=== PATIENT | female | born 1965 | race Two or more races ===

== ENCOUNTER 2020-04-06 07:15 | Outpatient (REF) | payer OTHER, SELFPAY ==
[2020-04-06 07:39] LABS: MANUAL DIFF FLAG NO
[2020-04-06 07:41] LABS: Glucose Urine UA NEG (NEG); Leukocyte Esterase Urine NEG (NEG); Nitrite Urine NEG (NEG); PH 5.5 (5.0-8.0); Specific Gravity - Urine 1.025 (1.005-1.025); Urine Blood NEG (NEG); Urine Ketones NEG (NEG); Urine Protein NEG (NEG-TRACE)
[2020-04-06 07:43] LABS: Appearance Urine CLEAR; Color Urine YELLOW
[2020-04-06 07:52] LABS: Basophils Absolute Auto 0.1 X10*3/uL (0.0-0.2); Basophils Percent Auto 0.7 % (0-2); Eosinophils Absolute Auto 0.4 X10*3/uL (0.0-0.4); Eosinophils Percent Auto 3.8 % (0-4); Hemoglobin 12.2 g/dl (12.0-16.0); Imm Gran Abs Auto 0.04 X10*3/uL (0.00-0.03); Imm Gran Pct Auto 0.4 % (0.0-0.4); Lymphocytes Absolute Auto 2.5 X10*3/uL (1.2-4.9); Mean Corpuscular HGB Conc 30.5 g/dl (31.0-35.0); Mean Corpuscular Hemoglobin 25.7 pg (27.0-33.0); Mean Corpuscular Volume 84.4 fL (80-98); Mean Platelet Volume 8.9 fL (9.4-12.3); Monocytes Percent Auto 10.4 % (2-11); Neutrophils Absolute Auto 5.9 X10*3/uL (2.0-8.3); Neutrophils Percent Auto 59.7 % (45-73); Platelet Count 397 X10*3/uL (160-400); Red Blood Count 4.74 X10*6/uL (4.20-5.50); Red Cell Distribution Width 14.3 % (11.0-16.0)
[2020-04-06 08:05] LABS: Creatinine Urine 140.94 mg/dL; Microalbum/Creatinine Ratio Ur 12.7 ug/mg cr
[2020-04-06 08:07] LABS: Alanine Aminotransferase 29 U/L (0-31); Albumin Level 3.7 g/dL (3.5-5.0); Alkaline Phosphatase 70 U/L (39-117); Anion Gap 12 (12-20); Aspartate Amino Transferase 21 U/L (5-31); Bilirubin Total 0.5 mg/dL (0.0-1.0); Blood Urea Nitrogen 9 mg/dL (9-16); Calcium 9.1 mg/dL (8.4-10.2); Carbon Dioxide 30 mmol/L (22-29); Chloride 101 mmol/L (96-108); Cholesterol 169 mg/dL; Estimated Glomerular Filt Rate > 60; Glucose Fasting 149 mg/dL (60-99); HDL Cholesterol 34 mg/dL; LDL Cholesterol Calculated 113 mg/dl; Potassium 4.1 mmol/l (3.3-5.1); Sodium 139 mmol/L (135-145); Total Protein 7.9 g/dL (6.5-8.0); Triglycerides 110 mg/dL
[2020-04-06 08:10] LABS: Bacteria Urine 1+ /LPF; RBC Urine 0 /HPF (0); Squamous Epithelial Cell Urine 2+ /LPF; WBC Urine 0-2 /HPF (0-4)
[2020-04-06 08:29] LABS: Free T4 (Free Thyroxine) 1.31 ng/dL (0.71-1.85); Thyroid Stimulating Hormone 1.49 uIU/mL (0.32-4.0)
== END 2020-04-06 07:16 | disposition home or self-care (01) ==
LOC: HO.LAB 07:15
PROVIDERS: Visit Provider Internal Medicine
DX: I10 Essential (primary) hypertension (principal); E03.9 Hypothyroidism, unspecified; E66.01 Morbid (severe) obesity due to excess calories; J30.2 Other seasonal allergic rhinitis; E55.9 Vitamin D deficiency, unspecified
CPT/HCPCS: 36415; 80053; 80061; 81001; 82043; 82306; 84439; 84443; 85025

== ENCOUNTER 2020-08-25 07:07 | Outpatient (REF) | payer OTHER, SELFPAY ==
[2020-08-25 07:37] LABS: MANUAL DIFF FLAG NO
[2020-08-25 07:56] LABS: Basophils Absolute Auto 0.1 X10*3/uL (0.0-0.2); Basophils Percent Auto 0.9 % (0-2); Eosinophils Absolute Auto 0.4 X10*3/uL (0.0-0.4); Eosinophils Percent Auto 4.6 % (0-4); Hematocrit 40.9 % (37-47); Imm Gran Abs Auto 0.03 X10*3/uL (0.00-0.03); Imm Gran Pct Auto 0.4 % (0.0-0.4); Lymphocytes Absolute Auto 2.6 X10*3/uL (1.2-4.9); Lymphocytes Percent Auto 32.2 % (20-40); Mean Corpuscular HGB Conc 31.8 g/dl (31.0-35.0); Mean Corpuscular Hemoglobin 26.4 pg (27.0-33.0); Monocytes Absolute Auto 0.9 X10*3/uL (0.1-1.2); Monocytes Percent Auto 10.7 % (2-11); Neutrophils Absolute Auto 4.1 X10*3/uL (2.0-8.3); Neutrophils Percent Auto 51.2 % (45-73); Platelet Count 350 X10*3/uL (160-400); Red Blood Count 4.93 X10*6/uL (4.20-5.50); Red Cell Distribution Width 13.8 % (11.0-16.0)
[2020-08-25 08:01] LABS: Estimated Average Glucose 275 mg/dL; Hemoglobin A1c % 11.2 %
[2020-08-25 08:03] LABS: Alanine Aminotransferase 69 U/L (0-31); Albumin Level 3.8 g/dL (3.5-5.0); Alkaline Phosphatase 84 U/L (39-117); Anion Gap 14 (12-20); Aspartate Amino Transferase 46 U/L (5-31); Bilirubin Total 0.7 mg/dL (0.0-1.0); Blood Urea Nitrogen 11 mg/dL (9-16); Calcium 9.5 mg/dL (8.4-10.2); Carbon Dioxide 28 mmol/L (22-29); Chloride 98 mmol/L (96-108); Cholesterol 202 mg/dL; Estimated Glomerular Filt Rate > 60; Glucose Fasting 439 mg/dL (60-99); HDL Cholesterol 30 mg/dL; LDL Cholesterol Calculated 132 mg/dl; Potassium 4.3 mmol/L (3.3-5.1); Sodium 136 mmol/L (135-145); Total Protein 8.1 g/dL (6.5-8.0); Triglycerides 204 mg/dL
[2020-08-25 08:20] LABS: Free T4 (Free Thyroxine) 1.55 ng/dL (0.71-1.85); Thyroid Stimulating Hormone 2.18 uIU/mL (0.32-4.0); Vitamin D 25-OH Total 22.8 ng/mL (>30)
[2020-08-25 08:37] LABS: Glucose Urine UA 500 MG/DL (NEG); Leukocyte Esterase Urine NEG (NEG); Nitrite Urine NEG (NEG); PH 5.5 (5.0-8.0); Specific Gravity - Urine 1.025 (1.005-1.025); Urine Blood 1+ (NEG); Urine Ketones NEG (NEG); Urine Protein NEG (NEG-TRACE)
[2020-08-25 08:42] LABS: Appearance Urine HAZY; Color Urine YELLOW
[2020-08-25 08:57] LABS: Squamous Epithelial Cell Urine 2+ /LPF; WBC Urine 0 /HPF (0-4)
[2020-08-25 09:05] LABS: Creatinine Urine 128.77 mg/dL; Microalbum/Creatinine Ratio Ur 25.6 ug/mg cr
== END 2020-08-25 07:08 | disposition home or self-care (01) ==
LOC: HO.LAB 07:07
PROVIDERS: PCP Internal Medicine; Visit Provider Internal Medicine
DX: I10 Essential (primary) hypertension (principal); J98.4 Other disorders of lung; E11.9 Type 2 diabetes mellitus without complications; E78.5 Hyperlipidemia, unspecified; E03.9 Hypothyroidism, unspecified; E66.01 Morbid (severe) obesity due to excess calories; Z68.43 Body mass index [BMI] 50.0-59.9, adult; E55.9 Vitamin D deficiency, unspecified
CPT/HCPCS: 36415; 80053; 80061; 81001; 81003; 82043; 82306; 83036; 84439; 84443; 85025

== ENCOUNTER 2020-10-15 08:42 | Outpatient (REF) | payer OTHER, SELFPAY ==
--- NOTE | ~2020-10-15 | MM_ITS ---
EXAMINATION: MM SCREENING DIGITAL BREAST TOMOSYNTHESIS, BILATERAL CLINICAL INFORMATION: Screening. Asymptomatic. The lifetime risk of breast cancer based on the Tyrer-Cuzick Model is 17%. COMPARISON: Mammography: 07/11/2019, 11/09/2017, 09/22/2016 TECHNIQUE: Digital breast tomosynthesis is performed in both the craniocaudal and mediolateral oblique views along with computer-aided detection (CAD). Synthesized 2D images are generated from the tomosynthesis. Additional left CC view is provided. FINDINGS: The breasts are almost entirely fatty (ACR BI-RADS breast composition Category a). Background stromal and fibroglandular densities are stable. There is no interval mass or architectural abnormality. Regional punctate benign round calcifications are again seen posterior medial left breast in area of superficial keloids. The axilla are unremarkable. There are no significant changes from prior studies. MM/MM tomosynthesis screening BI IMPRESSION: No mammographic evidence of malignancy. ASSESSMENT: BI-RADS 2: Benign RECOMMENDATION: Routine annual mammography screening. This patient's information was entered into a reminder system with a target due date for their next mammogram.
== END 2020-10-15 08:43 | disposition home or self-care (01) ==
LOC: HO.MAMMO 08:42
PROVIDERS: PCP Internal Medicine; Visit Provider Internal Medicine
DX: Z12.31 Encounter for screening mammogram for malignant neoplasm of breast (principal)
CPT/HCPCS: 77063; 77067

== ENCOUNTER → 2020-10-30 09:41 | Outpatient (BNVA) | payer OTHER, SELFPAY | PROVIDERS: PCP Internal Medicine; Visit Provider Dietitian, Registered | DX: E11.65 Type 2 diabetes mellitus with hyperglycemia (principal) | CPT/HCPCS: 97802 ==

== ENCOUNTER → 2020-12-23 09:47 | Outpatient (BNVA) | payer OTHER, SELFPAY | PROVIDERS: PCP Internal Medicine; Visit Provider Dietitian, Registered | DX: E11.65 Type 2 diabetes mellitus with hyperglycemia (principal) | CPT/HCPCS: 97803 ==

== ENCOUNTER 2021-04-03 09:16 | Outpatient (REF) | payer OTHER, SELFPAY ==
[2021-04-03 09:29] LABS: MANUAL DIFF FLAG NO
[2021-04-03 10:12] LABS: Basophils Percent Auto 0.4 % (0-2); Eosinophils Absolute Auto 0.4 X10*3/uL (0.0-0.4); Eosinophils Percent Auto 5.5 % (0-4); Hematocrit 41.7 % (37.0-47.0); Hemoglobin 12.4 g/dl (12.0-16.0); Imm Gran Abs Auto 0.02 X10*3/uL (0.00-0.03); Imm Gran Pct Auto 0.3 % (0.0-0.4); Lymphocytes Absolute Auto 2.5 X10*3/uL (1.2-4.9); Lymphocytes Percent Auto 32.4 % (20-40); Mean Corpuscular HGB Conc 29.7 g/dl (31.0-35.0); Mean Corpuscular Hemoglobin 25.2 pg (27.0-33.0); Mean Corpuscular Volume 84.8 fL (80.0-98.0); Mean Platelet Volume 9.6 fL (9.4-12.3); Neutrophils Absolute Auto 3.8 x10*3/uL (2.0-8.3); Neutrophils Percent Auto 48.4 % (45-73); Platelet Count 384 X10*3/uL (160-400); Red Blood Count 4.92 X10*6/uL (4.20-5.50); White Blood Count 7.8 X10*3/uL (4.8-10.8)
[2021-04-03 10:44] LABS: Estimated Average Glucose 137 mg/dL; Hemoglobin A1c % 6.4 %
[2021-04-03 11:04] LABS: Free T4 (Free Thyroxine) 1.93 ng/dL (0.71-1.85); Thyroid Stimulating Hormone 1.83 uIU/mL (0.32-4.0)
[2021-04-03 11:08] LABS: Alanine Aminotransferase 98 U/L (0-31); Albumin Level 3.5 g/dL (3.5-5.0); Alkaline Phosphatase 59 U/L (39-117); Anion Gap 14 (12-20); Aspartate Amino Transferase 91 U/L (5-31); Bilirubin Total 0.4 mg/dL (0.0-1.0); Blood Urea Nitrogen 9 mg/dL (9-16); Calcium 9.5 mg/dL (8.4-10.2); Carbon Dioxide 28 mmol/L (22-29); Chloride 103 mmol/L (96-108); Cholesterol 168 mg/dL; Estimated Glomerular Filt Rate > 60; Glucose Fasting 131 mg/dL (60-99); HDL Cholesterol 21 mg/dL; LDL Cholesterol Calculated 110 mg/dl; Sodium 141 mmol/L (135-145); Total Protein 7.7 g/dL (6.5-8.0); Triglycerides 186 mg/dL
[2021-04-03 11:37] LABS: Appearance Urine HAZY; Color Urine YELLOW; Glucose Urine UA NEG (NEG); Leukocyte Esterase Urine NEG (NEG); Nitrite Urine NEG (NEG); PH 5.5 (5.0-8.0); Specific Gravity - Urine >= 1.030 (1.005-1.025); Urine Blood NEG (NEG); Urine Ketones NEG (NEG); Urine Protein NEG (NEG-TRACE)
[2021-04-03 11:58] LABS: Creatinine Urine 245.18 mg/dL; Microalbum/Creatinine Ratio Ur 8.5 ug/mg cr
== END 2021-04-03 09:17 | disposition home or self-care (01) ==
LOC: HO.LAB 09:16
PROVIDERS: PCP Internal Medicine; Visit Provider Internal Medicine
DX: E11.65 Type 2 diabetes mellitus with hyperglycemia (principal); I10 Essential (primary) hypertension; E03.9 Hypothyroidism, unspecified; E78.00 Pure hypercholesterolemia, unspecified; E78.5 Hyperlipidemia, unspecified; J30.2 Other seasonal allergic rhinitis; E66.01 Morbid (severe) obesity due to excess calories; Z68.43 Body mass index [BMI] 50.0-59.9, adult
CPT/HCPCS: 36415; 80053; 80061; 81003; 82043; 83036; 84439; 84443; 85025

== ENCOUNTER 2021-05-25 07:45 | Outpatient (REF) | payer OTHER, SELFPAY ==
--- NOTE | ~2021-05-25 | US_ITS ---
EXAMINATION: US ABDOMEN COMPLETE CLINICAL INFORMATION: Elevated LFTs. COMPARISON: CT abdomen and pelvis without contrast 03/31/2017 ultrasound abdomen 06/10/2011. TECHNIQUE: Real-time imaging of the abdominal viscera. Technically suboptimal study secondary to body habitus. FINDINGS: Suboptimal imaging due to body habitus. PANCREAS: The head and body of pancreas is homogeneous in echotexture without enlargement. The tail is obscured by overlying gas. ABDOMINAL AORTA: The proximal, mid, and distal segments are normal in caliber. INFERIOR VENA CAVA: Visualized portions are normal. LIVER: The liver is enlarged with increased echogenicity. No focal lesion or mass seen. There is no intrahepatic biliary duct dilatation seen. Right hepatic lobe measures 21.1 cm and the left hepatic lobe measures 16.3 cm. . GALLBLADDER: There is a small echogenic polyp measuring 0.6 x 0.4 x 0.4 cm. Wall calcification is considered less likely. The gallbladder is physiologically distended without evidence of stones, sludge, wall thickening or pericholecystic fluid. COMMON BILE DUCT: Normal in caliber measuring 0.3 cm in diameter. RIGHT KIDNEY: Normal. No hydronephrosis. No renal calculi or focal parenchymal lesions. The kidney measures 14.2 cm in maximum dimension. LEFT KIDNEY: Normal. No hydronephrosis. No renal calculi or focal parenchymal lesions. The kidney measures 13.6 cm in maximum dimension. SPLEEN: Normal. The spleen measures 11.0 cm in maximum dimension. FREE FLUID: None. US/US abdomen complete IMPRESSION: Hepatic enlargement with hepatic steatosis. No focal lesion seen. Mobile echogenic gallbladder polyp, less likely calcification. The rest of the abdominal ultrasound is unremarkable.
== END 2021-05-25 07:46 | disposition home or self-care (01) ==
LOC: HO.US 07:45
PROVIDERS: PCP Internal Medicine; Visit Provider Internal Medicine
DX: R79.89 Other specified abnormal findings of blood chemistry (principal)
CPT/HCPCS: 76700

== ENCOUNTER 2021-09-28 07:11 | Outpatient (REF) | payer OTHER, SELFPAY ==
[2021-09-28 07:28] LABS: MANUAL DIFF FLAG NO
[2021-09-28 08:26] LABS: Basophils Absolute Auto 0.1 X10*3/uL (0.0-0.2); Basophils Percent Auto 0.7 % (0-2); Eosinophils Absolute Auto 0.7 X10*3/uL (0.0-0.4); Eosinophils Percent Auto 6.6 % (0-4); Hematocrit 40.9 % (37.0-47.0); Hemoglobin 12.5 g/dl (12.0-16.0); Imm Gran Abs Auto 0.03 X10*3/uL (0.00-0.03); Imm Gran Pct Auto 0.3 % (0.0-0.4); Lymphocytes Absolute Auto 2.8 X10*3/uL (1.2-4.9); Lymphocytes Percent Auto 28.9 % (20-40); Mean Corpuscular HGB Conc 30.6 g/dl (31.0-35.0); Mean Platelet Volume 9.4 fL (9.4-12.3); Monocytes Percent Auto 9.8 % (2-11); Neutrophils Absolute Auto 5.3 x10*3/uL (2.0-8.3); Neutrophils Percent Auto 53.7 % (45-73); Platelet Count 393 X10*3/uL (160-400); Red Blood Count 4.81 X10*6/uL (4.20-5.50); Red Cell Distribution Width 13.9 % (11.0-16.0); White Blood Count 9.8 X10*3/uL (4.8-10.8)
[2021-09-28 08:30] LABS: Alanine Aminotransferase 86 U/L (0-31); Albumin Level 3.7 g/dL (3.5-5.0); Alkaline Phosphatase 62 U/L (39-117); Anion Gap 14 (12-20); Aspartate Amino Transferase 72 U/L (5-31); Bilirubin Total 0.5 mg/dL (0.0-1.0); Blood Urea Nitrogen 13 mg/dL (9-16); Calcium 9.7 mg/dL (8.4-10.2); Carbon Dioxide 29 mmol/L (22-29); Chloride 100 mmol/L (96-108); Cholesterol 208 mg/dL; Estimated Glomerular Filt Rate > 60; Glucose Fasting 153 mg/dL (60-99); HDL Cholesterol 29 mg/dL; LDL Cholesterol Calculated 144 mg/dl; Potassium 4.6 mmol/L (3.3-5.1); Sodium 138 mmol/L (135-145); Total Protein 8.3 g/dL (6.5-8.0); Triglycerides 175 mg/dL
[2021-09-28 08:32] LABS: Appearance Urine CLEAR; Color Urine YELLOW; Glucose Urine UA NEG (NEG); Leukocyte Esterase Urine NEG (NEG); Nitrite Urine NEG (NEG); PH 5.5 (5.0-8.0); Specific Gravity - Urine >= 1.030 (1.005-1.025); UACC Culture Trigger NO; Urine Blood 2+ (NEG); Urine Ketones NEG (NEG); Urine Protein NEG (NEG-TRACE)
[2021-09-28 08:58] LABS: Free T4 (Free Thyroxine) 1.48 ng/dL (0.71-1.85); Thyroid Stimulating Hormone 3.01 uIU/mL (0.32-4.0); Vitamin D 25-OH Total 46.6 ng/mL (>30)
[2021-09-28 08:58] LABS: Creatinine Urine 224.73 mg/dL
[2021-09-28 08:59] LABS: Mucus Urine TRACE /LPF; Squamous Epithelial Cell Urine 4+ /LPF; WBC Urine 0 /HPF (0-4)
== END 2021-09-28 07:12 | disposition home or self-care (01) ==
LOC: HO.LAB 07:11
PROVIDERS: PCP Internal Medicine; Visit Provider Internal Medicine
DX: E03.9 Hypothyroidism, unspecified (principal); I10 Essential (primary) hypertension; E55.9 Vitamin D deficiency, unspecified; E11.9 Type 2 diabetes mellitus without complications; E78.00 Pure hypercholesterolemia, unspecified
CPT/HCPCS: 36415; 80053; 80061; 81001; 82043; 82306; 84439; 84443; 85025

== ENCOUNTER 2022-01-21 07:06 | Outpatient (REF) | payer OTHER, SELFPAY ==
[2022-01-21 07:56] LABS: Estimated Average Glucose 131 mg/dL; Hemoglobin A1c % 6.2 %
[2022-01-21 08:05] LABS: Alanine Aminotransferase 60 U/L (0-31); Albumin Level 3.8 g/dL (3.5-5.0); Alkaline Phosphatase 63 U/L (39-117); Anion Gap 16 (12-20); Aspartate Amino Transferase 59 U/L (5-31); Bilirubin Total 0.3 mg/dL (0.0-1.0); Blood Urea Nitrogen 12 mg/dL (9-16); Calcium 9.4 mg/dL (8.4-10.2); Carbon Dioxide 28 mmol/L (22-29); Chloride 100 mmol/L (96-108); Cholesterol 216 mg/dL; Estimated Glomerular Filt Rate > 60; Glucose Fasting 148 mg/dL (60-99); HDL Cholesterol 31 mg/dL; LDL Cholesterol Calculated 152 mg/dl; Potassium 4.3 mmol/L (3.3-5.1); Sodium 140 mmol/L (135-145); Total Protein 7.9 g/dL (6.5-8.0); Triglycerides 169 mg/dL
[2022-01-21 08:10] LABS: Appearance Urine Clear; Color Urine Yellow; Glucose Urine UA Negative (Negative); Leukocyte Esterase Urine Negative (Negative); Nitrite Urine Negative (Negative); Specific Gravity - Urine 1.025 (1.005-1.025); Urine Blood Negative (Negative); Urine Ketones Negative (Negative); Urine Protein Negative (Neg-Trace)
[2022-01-21 08:28] LABS: Free T4 (Free Thyroxine) 1.48 ng/dL (0.71-1.85)
== END 2022-01-21 07:07 | disposition home or self-care (01) ==
LOC: HO.LAB 07:06
PROVIDERS: PCP Internal Medicine; Visit Provider Internal Medicine
DX: I10 Essential (primary) hypertension (principal); E03.9 Hypothyroidism, unspecified; E11.9 Type 2 diabetes mellitus without complications; E78.00 Pure hypercholesterolemia, unspecified
CPT/HCPCS: 36415; 80053; 80061; 81003; 83036; 84439; 84443

== ENCOUNTER 2022-07-26 07:09 | Outpatient (REF) | payer OTHER, SELFPAY ==
[2022-07-26 07:18] LABS: MANUAL DIFF FLAG NO
[2022-07-26 07:55] LABS: Estimated Average Glucose 137 mg/dL; Hemoglobin A1c % 6.4 %
[2022-07-26 07:56] LABS: Basophils Absolute Auto 0.1 X10*3/uL (0.0-0.2); Basophils Percent Auto 0.6 % (0-2); Eosinophils Absolute Auto 0.7 X10*3/uL (0.0-0.4); Eosinophils Percent Auto 5.6 % (0-4); Hematocrit 40.6 % (37.0-47.0); Hemoglobin 12.4 g/dl (12.0-16.0); Imm Gran Abs Auto 0.04 X10*3/uL (0.00-0.03); Imm Gran Pct Auto 0.3 % (0.0-0.4); Lymphocytes Percent Auto 25.4 % (20-40); Mean Corpuscular HGB Conc 30.5 g/dl (31.0-35.0); Mean Corpuscular Hemoglobin 25.6 pg (27.0-33.0); Mean Corpuscular Volume 83.7 fL (80.0-98.0); Mean Platelet Volume 9.8 fL (9.4-12.3); Monocytes Absolute Auto 0.9 X10*3/uL (0.1-1.2); Monocytes Percent Auto 7.7 % (2-11); Neutrophils Absolute Auto 7.1 x10*3/uL (2.0-8.3); Neutrophils Percent Auto 60.4 % (45-73); Platelet Count 455 X10*3/uL (160-400); Red Blood Count 4.85 X10*6/uL (4.20-5.50); Red Cell Distribution Width 14.3 % (11.0-16.0); White Blood Count 11.7 X10*3/uL (4.8-10.8)
[2022-07-26 08:20] LABS: Alanine Aminotransferase 55 U/L (0-31); Albumin Level 3.8 g/dL (3.5-5.0); Alkaline Phosphatase 73 U/L (39-117); Anion Gap 15 (12-20); Aspartate Amino Transferase 70 U/L (5-31); Bilirubin Total 0.6 mg/dL (0.0-1.0); Blood Urea Nitrogen 12 mg/dL (9-16); Calcium 9.6 mg/dL (8.4-10.2); Carbon Dioxide 29 mmol/L (22-29); Chloride 100 mmol/L (96-108); Cholesterol 162 mg/dL; Estimated Glomerular Filt Rate > 60; Glucose Fasting 143 mg/dL (60-99); HDL Cholesterol 31 mg/dL; LDL Cholesterol Calculated 102 mg/dl; Potassium 4.3 mmol/L (3.3-5.1); Sodium 140 mmol/L (135-145); Total Protein 7.8 g/dL (6.5-8.0); Triglycerides 147 mg/dL
[2022-07-26 08:33] LABS: Appearance Urine Clear; Color Urine Yellow; Glucose Urine UA Negative (Negative); Leukocyte Esterase Urine Negative (Negative); Nitrite Urine Negative (Negative); PH 5.5 (5.0-9.0); Specific Gravity - Urine 1.025 (1.005-1.025); Urine Blood Negative (Negative); Urine Ketones Negative (Negative); Urine Protein Trace mg/dL (Neg-Trace)
[2022-07-26 08:39] LABS: Free T4 (Free Thyroxine) 1.16 ng/dL (0.71-1.85); Vitamin D 25-OH Total 78.7 ng/mL (>30)
[2022-07-26 09:15] LABS: Creatinine Urine 205.59 mg/dL
== END 2022-07-26 07:10 | disposition home or self-care (01) ==
LOC: HO.LAB 07:09
PROVIDERS: PCP Internal Medicine; Visit Provider Internal Medicine
DX: E03.9 Hypothyroidism, unspecified (principal); R30.0 Dysuria; E11.9 Type 2 diabetes mellitus without complications; E55.9 Vitamin D deficiency, unspecified; I10 Essential (primary) hypertension; E78.00 Pure hypercholesterolemia, unspecified
CPT/HCPCS: 36415; 80053; 80061; 81003; 82043; 82306; 83036; 84439; 84443; 85025

== ENCOUNTER 2022-09-15 07:40 | Outpatient (REF) | payer OTHER, SELFPAY ==
--- NOTE | ~2022-09-15 | CT_ITS ---
EXAMINATION: CT head/brain wo IV con CLINICAL INFORMATION: Reason for Exam R51.9 - Headache, unspecified COMPARISON: None. TECHNIQUE: Contiguous axial imaging was performed from the skull base to vertex without intravenous contrast. Sagittal and coronal reformatted images were obtained. This CT examination was performed using dose optimization techniques as appropriate, variously including the following: * Automated exposure control * Adjustment of mA and/or kV according to patient size (this includes techniques or standardized protocols for targeted exams where dose is matched to indication/reason for exam; i.e. extremities or head) Use of iterative reconstruction technique DLP: 779 mGy-cm FINDINGS: No acute osseous or soft tissue abnormality. The mastoid air cells and visualized portions of the paranasal sinuses are well aerated. There is no evidence of acute intracranial hemorrhage or territorial infarction. No abnormal mass effect or midline shift is seen. Voss to white matter differentiation is well preserved. No extra-axial fluid collections are identified. No hydrocephalus. No significant volume loss. There is no abnormal attenuation within the brain parenchyma. CT/CT head/brain wo IV con IMPRESSION: No acute intracranial abnormality including hemorrhage, mass effect, hydrocephalus, or acute territorial edematous infarction.
== END 2022-09-15 07:41 | disposition home or self-care (01) ==
LOC: HO.CT 07:40
PROVIDERS: PCP Internal Medicine; Visit Provider Internal Medicine
DX: R51.9 Headache, unspecified (principal)
CPT/HCPCS: 70450

== ENCOUNTER 2022-10-14 16:05 | Outpatient (REF) | payer OTHER, SELFPAY ==
--- NOTE | ~2022-10-14 | MM_ITS ---
EXAMINATION: MM SCREENING DIGITAL BREAST TOMOSYNTHESIS, BILATERAL CLINICAL INFORMATION: Screening. Asymptomatic. The lifetime risk of breast cancer based on the Tyrer-Cuzick Model is 17%. COMPARISON: Mammography: 10/15/2020, 07/11/2019, 11/09/2017 TECHNIQUE: Digital breast tomosynthesis is performed in both the craniocaudal and mediolateral oblique views along with computer-aided detection (CAD). Synthesized 2D images are generated from the tomosynthesis. Additional left MLO view is provided. FINDINGS: The breasts are almost entirely fatty (ACR BI-RADS breast composition Category a). Background stromal and fibroglandular densities are similar to prior studies. No architectural abnormality or developing density. There are no significant masses, abnormal calcifications, or other abnormalities. There is chronic dermal lesion overlying the posterior medial left breast with scattered benign dermal calcifications. The axilla are unremarkable. No significant changes. MM/MM tomosynthesis screening BI IMPRESSION: No mammographic evidence of malignancy. ASSESSMENT: BI-RADS 2: Benign RECOMMENDATION: Routine annual mammography screening. This patient's information was entered into a reminder system with a target due date for their next mammogram.
== END 2022-10-14 16:06 | disposition home or self-care (01) ==
LOC: HO.MAMMO 16:05
PROVIDERS: PCP Internal Medicine; Visit Provider Internal Medicine
DX: Z12.31 Encounter for screening mammogram for malignant neoplasm of breast (principal)
CPT/HCPCS: 77063; 77067

== ENCOUNTER 2023-03-29 07:11 | Outpatient (REF) | payer OTHER, SELFPAY ==
[2023-03-29 07:32] LABS: MANUAL DIFF FLAG NO
[2023-03-29 08:49] LABS: Basophils Absolute Auto 0.1 X10*3/uL (0.0-0.2); Basophils Percent Auto 0.9 % (0-2); Eosinophils Absolute Auto 0.5 X10*3/uL (0.0-0.4); Eosinophils Percent Auto 4.9 % (0-4); Hematocrit 39.7 % (37.0-47.0); Hemoglobin 11.9 g/dl (12.0-16.0); Imm Gran Abs Auto 0.03 X10*3/uL (0.00-0.03); Imm Gran Pct Auto 0.3 % (0.0-0.4); Lymphocytes Absolute Auto 2.3 X10*3/uL (1.2-4.9); Lymphocytes Percent Auto 23.5 % (20-40); Mean Corpuscular Hemoglobin 25.4 pg (27.0-33.0); Mean Corpuscular Volume 84.6 fL (80.0-98.0); Mean Platelet Volume 10.1 fL (9.4-12.3); Monocytes Absolute Auto 0.8 X10*3/uL (0.1-1.2); Monocytes Percent Auto 7.6 % (2-11); Neutrophils Absolute Auto 6.2 x10*3/uL (2.0-8.3); Neutrophils Percent Auto 62.8 % (45-73); Platelet Count 392 X10*3/uL (160-400); Red Blood Count 4.69 X10*6/uL (4.20-5.50); Red Cell Distribution Width 14.1 % (11.0-16.0); White Blood Count 9.8 X10*3/uL (4.8-10.8)
[2023-03-29 08:58] LABS: Appearance Urine Cloudy; Color Urine Yellow; Glucose Urine UA 100 mg/dL (Negative); Leukocyte Esterase Urine Negative (Negative); Nitrite Urine Negative (Negative); PH 5.5 (5.0-9.0); Specific Gravity - Urine 1.025 (1.005-1.025); UMIC TRIGGER UACC YES; Urine Blood Negative (Negative); Urine Ketones Trace mg/dL (Negative); Urine Protein 30 (1+) mg/dL (Neg-Trace)
[2023-03-29 09:14] LABS: Estimated Average Glucose 232 mg/dL; Hemoglobin A1c % 9.7 % (<6.0)
[2023-03-29 09:33] LABS: Alanine Aminotransferase 38 U/L (0-31); Albumin Level 3.7 g/dL (3.5-5.0); Alkaline Phosphatase 60 U/L (39-117); Anion Gap 14 (12-20); Aspartate Amino Transferase 35 U/L (5-31); Bilirubin Total 0.4 mg/dL (0.0-1.0); Blood Urea Nitrogen 9 mg/dL (9-16); Calcium 9.8 mg/dL (8.4-10.2); Carbon Dioxide 28 mmol/L (22-29); Chloride 101 mmol/L (96-108); Cholesterol 146 mg/dL (<200); Estimated Glomerular Filt Rate > 60; Glucose Fasting 266 mg/dL (60-99); HDL Cholesterol 31 mg/dL (>40); LDL Cholesterol Calculated 87 mg/dL (<100); Sodium 139 mmol/L (135-145); Total Protein 8.2 g/dL (6.5-8.0); Triglycerides 141 mg/dL (<150)
[2023-03-29 09:33] LABS: Bacteria Urine 1+ (None Seen); Hyaline Casts Urine 0-2 /LPF (0-2); RBC Urine 0-2 /HPF (0-2); Squamous Epithelial Cell Urine >20 /HPF (0-2); WBC Urine 0-5 /HPF (0-5)
[2023-03-29 09:40] LABS: Vitamin D 25-OH Total 57.2 ng/mL (>30)
[2023-04-02 01:58] LABS: Iodine, Serum/Plasma 70 mcg/L (52-109)
== END 2023-03-29 07:12 | disposition home or self-care (01) ==
LOC: HO.LAB 07:11
PROVIDERS: PCP Internal Medicine; Visit Provider Internal Medicine
DX: I10 Essential (primary) hypertension (principal); E78.00 Pure hypercholesterolemia, unspecified; E11.9 Type 2 diabetes mellitus without complications; E03.9 Hypothyroidism, unspecified; E55.9 Vitamin D deficiency, unspecified; R79.89 Other specified abnormal findings of blood chemistry
CPT/HCPCS: 36415; 80053; 80061; 81001; 81003; 82306; 83036; 83789; 84439; 84443; 85025

== ENCOUNTER 2023-06-12 14:36 | Outpatient (AMB) | payer OTHER, SELFPAY ==
[2023-06-12 14:40] VITALS: BP 132/88; PULSE 97; O2SAT 97; BMI 46.9
--- NOTE | 2023-06-12 14:40 | A.OFFPC_ITS ---
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: No Accompanied by: Self / Same As Patient Allergies atorvastatin Adverse Reaction (Intermediate, Verified 09/29/23 10:08) myalgia Medication List - Last Reconciled 06/12/23 by Patrick Johnson MD albuterol sulfate 90 mcg/actuation 2 puffs inhalation Q6H PRN 30 days aspirin 81 mg PO DAILY 90 days blood sugar diagnostic (FreeStyle Lite Strips) As directed daily BG testing blood-glucose meter (FreeStyle Lite Meter kit) As directed cholecalciferol (vitamin D3) 1,250 mcg PO QWEEK 90 days lancets (FreeStyle Lancets) USE TO TEST ONE TIME PER DAY levothyroxine (Synthroid) 175 mcg PO QAM 90 days lisinopril 20 mg PO DAILY 90 days metformin 1,000 mg PO BID 90 days miscellaneous medical supply 1 ea miscellaneous .once per day 90 days rosuvastatin 5 mg PO .QOD 60 days sumatriptan succinate take 1 tab at onset of headache; if no relief may repeat 1 tab after at least 2 hrs; max = 4 tabs/24 hr PO 30 days Tobacco use date assessed: 06/12/23 Dental Screening Dental Screen Date: 06/12/23 Did you have a dental visit in the last 12 months?: Yes Did you have a dental problem in the last 6 months where you did not have access to dental care?: No Was dental information given to patient?: Patient has dentist HPI 4 month f/u HPI Details Patient comes in today for her follow up visit States that she feels okay but has noticed that her blood sugars have been running higher than usual for the past few weeks She denies any increased headaches or dizziness lately - states that her migraine headaches have been adequately controlled Denies any chest pains, no SOB No nausea/vomiting, no abdominal pain No change in bowel habits noted States that she has noticed (+) urinary frequency and she has also been drinking a lot of water lately due to increased thirst Had some follow up labs done a couple of months ago and no other labs done more recently COUNT INCLUDES THE [facility] Medical History Mixed hyperlipidemia Migraine aura without headache Morbid obesity with BMI of 45.0-49.9, adult Type 2 diabetes mellitus with hyperglycemia Diverticulitis Morbid obesity with BMI of 50.0-59.9, adult PCOS (polycystic ovarian syndrome) Seasonal allergic rhinitis Vitamin D deficiency Restrictive lung disease Acquired hypothyroidism Dyslipidemia Benign essential hypertension Diabetes mellitus Surgical History History of incision and drainage Family History Father Medical history unknown Mother CVD (cardiovascular disease) Cancer Hypertension Social History Housing: House Alcohol intake: never Patient Tobacco Use Status: Former Tobacco user e-Cigarette/Vaping Use: Never Used Second Hand Smoke Exposure: Yes service: No Current occupational status: employed 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 1. Little interest or pleasure in doing things: not at all 2. Feeling down, depressed, or hopeless: not at all 3. Trouble falling or staying asleep, or sleeping too much: not at all 4. Feeling tired or having little energy: not at all 5. Poor appetite or overeating: not at all 6. Feeling bad about yourself - or that you are a failure or have let yourself or your family down: not at all 7. Trouble concentrating on things, such as reading the newspaper or watching television: not at all 8. Moving or speaking so slowly that other people could have noticed. Or the opposite - being so fidgety or restless that you have been moving around a lot more than usual: not at all 9. Thoughts that you would be better off or of hurting yourself in some way: not at all Total score: 0 Depression Screening Interpretation: Negative Depression Screening Done: Yes 38988 - PHQ-9 Billing: Yes Source: Developed by Drs. Pankaj Degroot, Chucky Munoz and colleagues, with an educational tristan from [employer]. Thrive Questionnaire Date Thrive assessed: 06/12/23 I am a: Patient What is your living situation today?: I have a steady place to live Within the past 12 months, did the food you bought not last and you didn't have the money to get more?: Never true Within the past 12 months, did you worry whether your food would run out before you got money to buy more?: Never true Do you have trouble paying for medicines?: No Do you have trouble getting transportation to medical appointments?: No Do you have trouble paying your heating and electricity bill?: No Do you have trouble taking care of your child, family member or friend?: No Do you have trouble with day-to-day activities such as bathing, preparing meals, shopping, managing finances, etc.?: No Are you currently unemployed and looking for a job?: No Are you interested in more education?: No Currently or been in a relationship where the following occur: no concerns reported THRIVE Score: 0 AUDIT C Alcohol Use Questionnaire (AUDIT-C) 1. How often do you have a drink containing alcohol?: Never 3. How often do you have six or more drinks on one occasion?: Never Total Score: 0 Score Reviewed/Action Taken: Yes ANGLE-7 AMB Questionnaire ANGLE-7 Date ANGLE - 7 assessed: 06/12/23 Feeling nervous, anxious, or on edge: 0 = Not at all Not being able to stop or control worryin = Not at all Worrying too much about different things: 0 = Not at all Trouble relaxin = Not at all Being so restless that it is hard to sit still: 0 = Not at all Becoming easily annoyed or irritable: 0 = Not at all Feeling afraid as if something awful might happen: 0 = Not at all Total ANGLE-7 score (0-4 normal; 5-9 mild; 10-14 moderate; 15-21 severe): 0 Source: Developed by Drs. Pankaj Degroot, Chucky Munoz and colleagues, with an educational tristan from [employer]. Review of Systems Const Denies chills, Denies fatigue, Denies fever(s) and Reports headache(s) (on and off but are better controlled lately) ENT Denies dysphagia, Denies dizziness, Denies otalgia, Reports headache(s) (on and off but are better controlled lately), Denies neck pain, Denies odynophagia and Denies sore throat Card Denies chest pain, Denies palpitations and Denies dyspnea Resp Denies cough and Denies dyspnea GI Denies abdominal pain, Denies constipation, Denies dysphagia, Denies heartburn, Denies diarrhea, Reports nausea (only when migraine headaches are severe), Denies odynophagia and Denies vomiting Denies difficulty voiding, Denies nocturia, Denies dysuria and Denies urinary urgency Musc Denies back pain and Denies neck pain Skin/Breast Denies rash Neuro Denies dizziness and Reports headache(s) (on and off but are better controlled lately) Endo Denies fatigue and Denies palpitations Meño/Lymph Details: (+) varicose veins over the back of the left knee - painful at times Physical exam (Primary Care) Vital Signs: Last Vital Signs Pulse 97 06/12/23 14:40 BP 132/88 06/12/23 14:40 Pulse Ox 97 06/12/23 14:40 Oxygen Delivery Method Room Air 06/12/23 14:40 BMI result Body Mass Index 46.9 Tobacco/Smoking Status: Tobacco use Status Tobacco use date assessed 06/12/23 06/12/23 14:48 Patient Tobacco Use Status Former Tobacco user 06/12/23 14:48 e-Cigarette/Vaping Use Never Used 06/12/23 14:48 PHQ-9: PHQ-9 Score PHQ-9: Total score 0 06/13/23 09:09 Depression Screening Interpretation: Negative Thrive Assessment: Date of Thrive Assessment Date Thrive assessed 06/12/23 06/12/23 14:48 Currently or been in a relationship where the following occur: no concerns reported Const General: no acute distress and alert HENMT Ears: TM's normal bilaterally and EAC's normal Throat: Yes posterior oropharynx normal and Yes tonsils normal Neck Neck: Yes no lymphadenopathy and Yes supple Thyroid: Thyroid normal Resp Auscultation: clear to auscultation bilaterally, no rales and no wheezes Cardio Rate: regular rate Rhythm: regular rhythm Heart sounds: no murmurs GI Palpation (GI): Soft to palpation and nontender Auscultation: normal bowel sounds General: Yes no CVA tenderness Back/Spine/Pelvis Back: no CVA tenderness Thoracic/Lumbar Spine: No lumbar spinal tenderness Skin Rashes: no rashes Extrem Other: (+) prominent varicose veins that are slightly tender on palpation over the lateral side of the left popliteal fossa General: Yes no clubbing, cyanosis or edema Results Reviewed Results Reviewed: Laboratory Tests 07/26/22 03/29/23 03/29/23 Unknown 07:25 07:27 WBC 9.8 Hgb 11.9 L Hct 39.7 Plt Count 392 Sodium 139 Potassium 4.0 Creatinine 0.90 Estimated GFR > 60 Fasting Glucose 266 H Hemoglobin A1c % 9.7 H Calcium 9.8 AST 35 H ALT 38 H Triglycerides 141 Cholesterol 146 LDL Cholesterol, Calc 87 HDL Cholesterol 25-OH Vitamin D Total TSH 22.80 H Free T4 1.10 Ur Specific [place] 1.025 Urine Protein 30 (1+) H Urine Glucose (UA) 100 H Urine Blood Negative Urine Nitrite Negative Ur Leukocyte Esterase Negative Microalb/Creat Ratio 15.0 Total Iodine 03/29/23 07:27 WBC Hgb Hct Plt Count Sodium Potassium Creatinine Estimated GFR Fasting Glucose Hemoglobin A1c % Calcium AST ALT Triglycerides Cholesterol LDL Cholesterol, Calc HDL Cholesterol 31 L 25-OH Vitamin D Total 57.2 TSH Free T4 Ur Specific [place] Urine Protein Urine Glucose (UA) Urine Blood Urine Nitrite Ur Leukocyte Esterase Microalb/Creat Ratio Total Iodine 70 Assessment and Plan Assessment & Plan (1) Mixed hyperlipidemia: Code(s): E78.2 - Mixed hyperlipidemia Plan: Results of her labs done a couple of months ago reviewed and discussed with patient Reinforced low cholesterol diet Continue Rosuvastatin 5 mg every other day - she has been tolerating Rx at his dosing with no problems so far (could not tolerate Atorvastatin in the past due to increased myalgia) Will recheck her labs and fasting lipids in 3 months for follow up (2) Type 2 diabetes mellitus: Code(s): E11.9 - Type 2 diabetes mellitus without complications Qualifiers: Diabetes mellitus complication status: without complication Diabetes mellitus intermediate frame tender insulin use: without halfway use Qualified Code(s): E11.9 - Type 2 diabetes mellitus without complications Plan: Her HgbA1c martínez increased significantly to 9.7% on her labs done a couple of months ago (was previously at 6.4% in July 2022) - goal is at least <7.0% Reinforced diabetic diet She is advised to continue following up with her dietitian for nutrition counseling and diabetic teaching as scheduled Continue Metformin 1000 mg BID Will start patient additionally on Tradjenta 5 mg QD and Pioglitazone 15 mg QD Will also check her C-peptide level and ANGLE Ab with her next labs in a few months for further evaluation of her DM, to see if she is now insulin-requiring or not (3) Benign essential hypertension: Code(s): I10 - Essential (primary) hypertension Plan: Reinforced low-sodium diet - goal is systolic BP of 120 mm or less Continue Lisinopril 20 mg QD (4) Migraine: Code(s): G43.909 - Migraine, unspecified, not intractable, without status migrainosus Qualifiers: Intractability: not intractable Migraine type: with aura Status migrainosus presence: without status migrainosus Qualified Code(s): G43.109 - Migraine with aura, not intractable, without status migrainosus Plan: Reinforced avoidance of migraine triggers Head CT done in August 2022 came out negative Continue Sumatriptan 50 mg PRN as instructed Discussed again option of starting her on Rx for headache prophylaxis if her headaches progress or increase in severity or frequency She is also now following up with neurology regularly for continuing management of her migraine headaches (5) Acquired hypothyroidism: Comment: (+) Marsha's thyroiditis Code(s): E03.9 - Hypothyroidism, unspecified Plan: Her TSH was again significantly elevated but her free T4 remained normal on her labs done last month; patient is clinically euthyroid Her total iodine level checked a few months ago also came back normal Continue Levothyroxine 175 mcg QD Will recheck her TFTs in 4 months for follow up (6) Restrictive lung disease: Comment: PFT done in August 2014 showed only mild restrictive lung disease with no obstructive component and with no significant improvement after bronchodilator therapy Code(s): J98.4 - Other disorders of lung Plan: Continue Albuterol HFA 2 puffs 4 times a day as needed Was on Flovent HFA in the past but patient stopped using it months ago as she felt that she does not really need it; has only been using her Albuterol HFA occasionally since (7) Elevated LFTs: Code(s): R79.89 - Other specified abnormal findings of blood chemistry Plan: LFTs remain elevated on her recent labs - are most likely due to fatty liver Patient denies any acute abdominal symptoms Abdominal US done last year came out normal Will continue to monitor her LFTs regularly (8) Vitamin D deficiency: Code(s): E55.9 - Vitamin D deficiency, unspecified Plan: Continue Vitamin D2 47229 units once a week (9) Varicose veins of left lower extremity with pain: Code(s): I83.812 - Varicose veins of left lower extremity with pain Plan: Follow up with vascular surgery as scheduled (10) Seasonal allergic rhinitis: Code(s): J30.2 - Other seasonal allergic rhinitis Qualifiers: Allergic rhinitis trigger: unspecified Qualified Code(s): J30.2 - Other seasonal allergic rhinitis Plan: Continue Montelukast 10 mg Q PM (11) PCOS (polycystic ovarian syndrome): Code(s): E28.2 - Polycystic ovarian syndrome Plan: Follow up with OB-Nut Sorter as scheduled for continuing management (12) Morbid obesity with BMI of 45.0-49.9, adult: Code(s): E66.01 - Morbid (severe) obesity due to excess calories; Z68.42 - Body mass index [BMI] 45.0-49.9, adult Plan: Reinforced diet/exercise as tolerated/lose weight Plan Follow up in 3 months Orders: Orders Vitamin B12 and Folate 3 Months E53.8 - Deficiency of other specified B group vitamins Comprehensive [place]. Panel Fast 3 Months E78.00 - Pure hypercholesterolemia, unspecified C Peptide 3 Months E11.9 - Type 2 diabetes mellitus without complications Glutamic acid decarboxylase Ab 3 Months E11.9 - Type 2 diabetes mellitus without complications Thyroid Stimulating Hormone 3 Months E03.9 - Hypothyroidism, unspecified Free T4 (Free Thyroxine) 3 Months E03.9 - Hypothyroidism, unspecified Vitamin D 25-OH Total 3 Months E55.9 - Vitamin D deficiency, unspecified Complete Blood Count Auto Diff 3 Months D64.9 - Anemia, unspecified Lipid Panel 3 Months E78.00 - Pure hypercholesterolemia, unspecified UA CC w/rflx Micro + Cult 3 Months R30.0 - Dysuria Microalbumin, Random (w Creat) 3 Months E11.9 - Type 2 diabetes mellitus withou t complications Hemoglobin A1c 3 Months E11.9 - Type 2 diabetes mellitus without complications Medications: New linagliptin (Tradjenta) 5 mg PO QAM 30 tabs 3RF 30 days pioglitazone 15 mg PO DAILY 30 tabs 3RF 30 days Changed From metformin 1,000 mg PO BID 90 days 180 tabs 1RF E11.65 - Type 2 diabetes mellitus with hyperglycemia To metformin 1,000 mg PO BID 180 tabs 1RF 90 days E11.65 - Type 2 diabetes mellitus with hyperglycemia Coding Level of Care Code Est Pt Level 4 (86454) Complex EM visit Add On G2211 Diagnoses Mixed hyperlipidemia E78.2 Type 2 diabetes mellitus without complication, without long-term current use of insulin E11.9 Diabetes mellitus complication status: without complication Diabetes mellitus halfway insulin use: without intermediate frame tender use Benign essential hypertension I10 Migraine with aura and without status migrainosus, not intractable G43.109 Intractability: not intractable Migraine type: with aura Status migrainosus presence: without status migrainosus Acquired hypothyroidism E03.9 Restrictive lung disease J98.4 Elevated LFTs R79.89 Vitamin D deficiency E55.9 Varicose veins of left lower extremity with pain I83.812 Seasonal allergic rhinitis, unspecified trigger J30.2 Allergic rhinitis trigger: unspecified PCOS (polycystic ovarian syndrome) E28.2 Morbid obesity with BMI of 45.0-49.9, adult E66.01; Z68.42
== END 2023-06-12 15:52 | disposition home or self-care (01) ==
PROVIDERS: PCP Internal Medicine; Visit Provider Internal Medicine
DX: E78.2 Mixed hyperlipidemia (principal); E11.9 Type 2 diabetes mellitus without complications; I10 Essential (primary) hypertension; G43.109 Migraine with aura, not intractable, without status migrainosus; E03.9 Hypothyroidism, unspecified; J98.4 Other disorders of lung; R79.89 Other specified abnormal findings of blood chemistry; E55.9 Vitamin D deficiency, unspecified; I83.812 Varicose veins of left lower extremity with pain; J30.2 Other seasonal allergic rhinitis; E28.2 Polycystic ovarian syndrome; E66.01 Morbid (severe) obesity due to excess calories
CPT/HCPCS: 99499

== ENCOUNTER 2023-09-19 07:03 | Outpatient (REF) | payer OTHER, SELFPAY ==
[2023-09-19 07:19] LABS: MANUAL DIFF FLAG NO
[2023-09-19 08:07] LABS: Basophils Absolute Auto 0.1 X10*3/uL (0.0-0.2); Basophils Percent Auto 0.8 % (0-2); Eosinophils Absolute Auto 0.6 X10*3/uL (0.0-0.4); Eosinophils Percent Auto 5.8 % (0-4); Hematocrit 38.7 % (37.0-47.0); Hemoglobin 11.9 g/dl (12.0-16.0); Imm Gran Abs Auto 0.02 X10*3/uL (0.00-0.03); Imm Gran Pct Auto 0.2 % (0.0-0.4); Lymphocytes Absolute Auto 2.8 X10*3/uL (1.2-4.9); Lymphocytes Percent Auto 25.2 % (20-40); Mean Corpuscular HGB Conc 30.7 g/dl (31.0-35.0); Mean Corpuscular Hemoglobin 25.2 pg (27.0-33.0); Mean Platelet Volume 9.3 fL (9.4-12.3); Monocytes Absolute Auto 0.8 X10*3/uL (0.1-1.2); Monocytes Percent Auto 7.5 % (2-11); Neutrophils Absolute Auto 6.7 x10*3/uL (2.0-8.3); Neutrophils Percent Auto 60.5 % (45-73); Platelet Count 422 X10*3/uL (160-400); Red Blood Count 4.72 X10*6/uL (4.20-5.50); Red Cell Distribution Width 14.3 % (11.0-16.0); White Blood Count 11.1 X10*3/uL (4.8-10.8)
[2023-09-19 08:19] LABS: Estimated Average Glucose 189 mg/dL; Hemoglobin A1c % 8.2 % (<6.0)
[2023-09-19 08:45] LABS: Appearance Urine Clear; Color Urine Yellow; Glucose Urine UA Negative (Negative); Leukocyte Esterase Urine Negative (Negative); Nitrite Urine Negative (Negative); PH 5.5 (5.0-9.0); Urine Blood Negative (Negative); Urine Ketones Negative (Negative); Urine Protein Negative (Neg-Trace)
[2023-09-19 08:51] LABS: Alanine Aminotransferase 51 U/L (0-31); Albumin Level 3.8 g/dL (3.5-5.0); Alkaline Phosphatase 64 U/L (39-117); Anion Gap 15 (12-20); Aspartate Amino Transferase 54 U/L (5-31); Bilirubin Total 0.4 mg/dL (0.0-1.0); Blood Urea Nitrogen 13 mg/dL (9-16); Calcium 9.9 mg/dL (8.4-10.2); Carbon Dioxide 29 mmol/L (22-29); Chloride 101 mmol/L (96-108); Cholesterol 142 mg/dL (<200); Estimated Glomerular Filt Rate > 60; Glucose Fasting 204 mg/dL (60-99); HDL Cholesterol 34 mg/dL (>40); LDL Cholesterol Calculated 78 mg/dL (<100); Potassium 3.7 mmol/L (3.3-5.1); Sodium 141 mmol/L (135-145); Total Protein 8.3 g/dL (6.5-8.0); Triglycerides 154 mg/dL (<150)
[2023-09-19 08:53] LABS: Free T4 (Free Thyroxine) 1.43 ng/dL (0.71-1.85); Thyroid Stimulating Hormone 13.57 uIU/mL (0.32-4.0); Vitamin D 25-OH Total 44.5 ng/mL (>30)
[2023-09-19 09:26] LABS: Creatinine Urine 195.46 mg/dL; Microalbum/Creatinine Ratio Ur 15.3 ug/mg cr (<30)
[2023-09-19 09:26] LABS: Folate 10.6 ng/mL (> or = 4.0)
[2023-09-19 09:40] LABS: Vitamin B12 439 pg/mL (200-900)
[2023-09-21 16:27] LABS: Glutamic acid decarboxylase Ab <5 IU/mL (<5)
== END 2023-09-19 07:04 | disposition home or self-care (01) ==
LOC: HO.LAB 07:03
PROVIDERS: PCP Internal Medicine; Visit Provider Internal Medicine
DX: E11.9 Type 2 diabetes mellitus without complications (principal); E55.9 Vitamin D deficiency, unspecified; E78.00 Pure hypercholesterolemia, unspecified; E53.8 Deficiency of other specified B group vitamins; R30.0 Dysuria; E03.9 Hypothyroidism, unspecified; D64.9 Anemia, unspecified
CPT/HCPCS: 36415; 80053; 80061; 81003; 82043; 82306; 82570; 82607; 82746; 83036; 84439; 84443; 84681; 85025; 86341

== ENCOUNTER 2023-09-29 09:08 | Outpatient (AMB) | payer OTHER, SELFPAY ==
[2023-09-29 09:12] VITALS: BP 144/80; PULSE 85; O2SAT 95; BMI 46.3
--- NOTE | 2023-09-29 09:12 | MHC.PC.OV ---
Vital Signs 09/29/23 09:12 09/29/23 10:07 Height 5 ft 2 in Weight 253 lb BMI 46.3 BP 144/80 H 140/82 H Blood Pressure Location Lt brachial Lt brachial Position Sitting Sitting Pulse 85 Pulse Source Pulse Oximeter Pulse Oximetry (%) 95 Oxygen Delivery Method Room Air Intake Visit Reasons: DM, hypothyroidism, hyperlipidemia Personal Finance Instructor Required: No Ocean Export Coordinator: Not Required per policy Accompanied by: Self / Same As Patient Allergies atorvastatin Adverse Reaction (Intermediate, Verified 09/29/23 10:08) myalgia Medication List - Last Reconciled 09/29/23 by Patrick Johnson MD albuterol sulfate 90 mcg/actuation 2 puffs inhalation Q6H PRN 30 days aspirin 81 mg PO DAILY 90 days blood sugar diagnostic (FreeStyle Lite Strips) As directed daily BG testing blood-glucose meter (FreeStyle Lite Meter kit) As directed cholecalciferol (vitamin D3) 1,250 mcg PO QWEEK 90 days lancets (FreeStyle Lancets) USE TO TEST ONE TIME PER DAY levothyroxine (Synthroid) 175 mcg PO QAM 90 days linagliptin (Tradjenta) 5 mg PO QAM 30 days lisinopril 20 mg PO DAILY 90 days metformin 1,000 mg PO BID 90 days miscellaneous medical supply 1 ea miscellaneous .once per day 90 days pioglitazone 15 mg PO DAILY 30 days rosuvastatin 5 mg PO .QOD 60 days sumatriptan succinate take 1 tab at onset of headache; if no relief may repeat 1 tab after at least 2 hrs; max = 4 tabs/24 hr PO 30 days Tobacco use date assessed: 06/12/23 Dental Screening Dental Screen Date: 06/12/23 HPI DM, hypothyroidism, hyperlipidemia HPI Details Patient comes in today for her follow up visit States that she feels okay Still has on and off headaches but states that her migraine headaches have been mostly well-controlled She is now seeing neurology for regular follow up of her headaches and was continued on the same medications she was on before She denies any dizziness Denies any chest pains, no SOB No nausea/vomiting, no abdominal pain No change in bowel habits noted She had her follow up labs done last week - to discuss her results [facility] Medical History Mixed hyperlipidemia Migraine aura without headache Morbid obesity with BMI of 45.0-49.9, adult Type 2 diabetes mellitus with hyperglycemia Diverticulitis Morbid obesity with BMI of 50.0-59.9, adult PCOS (polycystic ovarian syndrome) Seasonal allergic rhinitis Vitamin D deficiency Restrictive lung disease Acquired hypothyroidism Dyslipidemia Benign essential hypertension Diabetes mellitus Surgical History History of incision and drainage Family History Father Medical history unknown Mother CVD (cardiovascular disease) Cancer Hypertension Social History Housing: House Alcohol intake: never Patient Tobacco Use Status: Former Tobacco user e-Cigarette/Vaping Use: Never Used Second Hand Smoke Exposure: Yes service: No Current occupational status: employed 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 Pankaj Degroot, Bree Gee, Chucky Richter and colleagues, with an educational tristan from [employer] Review of Systems Const Denies chills, Denies fatigue, Denies fever(s) and Reports headache(s) (on and off but are better controlled lately) ENT Denies dysphagia, Denies dizziness, Denies otalgia, Reports headache(s) (on and off but are better controlled lately), Denies neck pain, Denies odynophagia and Denies sore throat Card Denies chest pain, Denies palpitations and Denies dyspnea Resp Denies cough and Denies dyspnea GI Denies abdominal pain, Denies constipation, Denies dysphagia, Denies heartburn, Denies diarrhea, Reports nausea (only when migraine headaches are severe), Denies odynophagia and Denies vomiting Denies difficulty voiding, Denies nocturia, Denies dysuria and Denies urinary urgency Musc Denies back pain and Denies neck pain Skin/Breast Denies rash Neuro Denies dizziness and Reports headache(s) (on and off but are better controlled lately) Endo Denies fatigue and Denies palpitations Meño/Lymph Details: (+) varicose veins over the back of the left knee - painful at times Physical exam (Primary Care) Vital Signs: Last Vital Signs Pulse 85 09/29/23 09:12 BP 144/80 H 09/29/23 09:12 Pulse Ox 95 09/29/23 09:12 Oxygen Delivery Method Room Air 09/29/23 09:12 BMI result Body Mass Index 46.3 Tobacco/Smoking Status: Tobacco use Status Tobacco use date assessed 06/12/23 09/29/23 09:16 Patient Tobacco Use Status Former Tobacco user 09/29/23 09:16 e-Cigarette/Vaping Use Never Used 09/29/23 09:16 Thrive Assessment: Date of Thrive Assessment Date Thrive assessed 06/12/23 09/29/23 09:16 Const General: no acute distress and alert HENMT Ears: TM's normal bilaterally and EAC's normal Throat: Yes posterior oropharynx normal and Yes tonsils normal Neck Neck: Yes no lymphadenopathy and Yes supple Thyroid: Thyroid normal Resp Auscultation: clear to auscultation bilaterally, no rales and no wheezes Cardio Rate: regular rate Rhythm: regular rhythm Heart sounds: no murmurs GI Palpation (GI): Soft to palpation and nontender Auscultation: normal bowel sounds General: Yes no CVA tenderness Back/Spine/Pelvis Back: no CVA tenderness Thoracic/Lumbar Spine: No lumbar spinal tenderness Skin Rashes: no rashes Extrem Other: (+) prominent varicose veins that are slightly tender on palpation over the lateral side of the left popliteal fossa General: Yes no clubbing, cyanosis or edema Results Reviewed Results Reviewed: Laboratory Tests 09/19/23 09/19/23 07:17 07:20 WBC 11.1 H Hgb 11.9 L Hct 38.7 MCH 25.2 L MCHC 30.7 L Plt Count 422 H Sodium 141 Potassium 3.7 Creatinine 0.79 Estimated GFR > 60 Fasting Glucose 204 H Hemoglobin A1c % 8.2 H C-Peptide 4.80 H AST 54 H ALT 51 H Triglycerides 154 H Cholesterol 142 LDL Cholesterol, Calc 78 HDL Cholesterol 34 L Vitamin B12 439 25-OH Vitamin D Total 44.5 TSH 13.57 H Free T4 1.43 Ur Specific [place] 1.020 Urine Protein Negative Urine Glucose (UA) Negative Urine Blood Negative Urine Nitrite Negative Ur Leukocyte Esterase Negative Microalb/Creat Ratio 15.3 ANGLE Antibody <5 Assessment and Plan Assessment & Plan (1) Mixed hyperlipidemia: Code(s): E78.2 - Mixed hyperlipidemia Plan: Results of her labs done last week reviewed and discussed with patient Reinforced low cholesterol diet Continue Rosuvastatin 5 mg every other day - has been tolerating Rx at his dosing with no problems so far (she could not tolerate Atorvastatin in the past due to increased myalgias) Will recheck her labs and fasting lipids in 4 months for follow up (2) Type 2 diabetes mellitus: Code(s): E11.9 - Type 2 diabetes mellitus without complications Qualifiers: Diabetes mellitus terminal make up operator insulin use: without longterm use Diabetes mellitus complication status: without complication Qualified Code(s): E11.9 - Type 2 diabetes mellitus without complications Plan: Her HgbA1c has improved to 8.2% on her labs done last week (was at 9.7% a few months ago) - goal is at least <7.0% Reinforced diabetic diet We also sent her for labs to check her ANGLE Ab and C-peptide level - both came back normal Continue Metformin 1000 mg BID and Pioglitazone 15 mg QD Follow up also with dietitian for nutrition counseling and diabetic teaching as scheduled or as needed (3) Benign essential hypertension: Code(s): I10 - Essential (primary) hypertension Plan: Reinforced low-sodium diet - goal is systolic BP of 120 mm or less Continue Lisinopril 20 mg QD (4) Migraine: Code(s): G43.909 - Migraine, unspecified, not intractable, without status migrainosus Qualifiers: Migraine type: with aura Status migrainosus presence: without status migrainosus Intractability: not intractable Qualified Code(s): G43.109 - Migraine with aura, not intractable, without status migrainosus Plan: Reinforced avoidance of migraine triggers Head CT done in August 2022 came out negative Continue Sumatriptan 50 mg PRN as instructed Discussed again option of starting her on Rx for headache prophylaxis if her headaches progress or increase in severity or frequency She is also now following up with neurology regularly for continuing management of her migraine headaches (5) Acquired hypothyroidism: Comment: (+) Marsha's thyroiditis Code(s): E03.9 - Hypothyroidism, unspecified Plan: Her TSH was again elevated (but is much lower than it was a few months ago) and her free T4 remained normal on her labs done last week; patient is clinically euthyroid Her total iodine level checked a few months ago also came back normal Continue Levothyroxine 175 mcg QD Will recheck her TFTs in 4 months for follow up (6) Restrictive lung disease: Comment: PFT done in August 2014 showed only mild restrictive lung disease with no obstructive component and with no significant improvement after bronchodilator therapy Code(s): J98.4 - Other disorders of lung Plan: Continue Albuterol HFA 2 puffs 4 times a day as needed Was on Flovent HFA in the past but patient stopped using it months ago as she felt that she does not really need it; she has only been using her Albuterol HFA occasionally PRN since (7) Elevated LFTs: Code(s): R79.89 - Other specified abnormal findings of blood chemistry Plan: LFTs remain elevated on her recent labs - are most likely due to fatty liver Patient denies any acute abdominal symptoms Abdominal US done last year came out normal Will continue to monitor her LFTs regularly (8) RBC microcytosis: Code(s): R71.8 - Other abnormality of red blood cells Plan: Review of her CBC over the past few years have shown that patient has consistently had microcytosis and hypochromia on her CBC; her RDW is usually normal and her H/H would sometimes go slightly low but are also often normal Will send her for Hgb electrophoresis (will be done with her other routine labs in a few months) for further evaluation (9) Vitamin D deficiency: Code(s): E55.9 - Vitamin D deficiency, unspecified Plan: Continue Vitamin D2 74876 units once a week (10) Varicose veins of left lower extremity with pain: Code(s): I83.812 - Varicose veins of left lower extremity with pain Plan: Follow up with vascular surgery as scheduled (11) Seasonal allergic rhinitis: Code(s): J30.2 - Other seasonal allergic rhinitis Qualifiers: Allergic rhinitis trigger: unspecified Qualified Code(s): J30.2 - Other seasonal allergic rhinitis Plan: Continue Montelukast 10 mg Q PM (12) PCOS (polycystic ovarian syndrome): Code(s): E28.2 - Polycystic ovarian syndrome Plan: Follow up with OB-E Commerce Marketing Analyst as scheduled for continuing management (13) Morbid obesity with BMI of 45.0-49.9, adult: Code(s): E66.01 - Morbid (severe) obesity due to excess calories; Z68.42 - Body mass index [BMI] 45.0-49.9, adult Plan: Reinforced diet/exercise as tolerated/lose weight Plan Follow up in 4 months Orders: Orders Comprehensive [place]. Panel Fast 4 Months E78.00 - Pure hypercholesterolemia, unspecified Thyroid Stimulating Hormone 4 Months E03.9 - Hypothyroidism, unspecified Free T4 (Free Thyroxine) 4 Months E03.9 - Hypothyroidism, unspecified Hemoglobin Electrophoresis 4 Months D64.9 - Anemia, unspecified Hemoglobin A1c 4 Months E11.9 - Type 2 diabetes mellitus without complications Complete Blood Count Auto Diff 4 Months D64.9 - Anemia, unspecified Lipid Panel 4 Months E78.00 - Pure hypercholesterolemia, unspecified Microalbumin, Random (w Creat) 4 Months E11.9 - Type 2 diabetes mellitus without complications Coding Level of Care Code Est Pt Level 4 (86044) Complex EM visit Add On G2211 Diagnoses Mixed hyperlipidemia E78.2 Type 2 diabetes mellitus without complication, without long-term current use of insulin E11.9 Diabetes mellitus terminal make up operator insulin use: without terminal make up operator use Diabetes mellitus complication status: without complication Benign essential hypertension I10 Migraine with aura and without status migrainosus, not intractable G43.109 Migraine type: with aura Status migrainosus presence: without status migrainosus Intractability: not intractable Acquired hypothyroidism E03.9 Restrictive lung disease J98.4 Elevated LFTs R79.89 RBC microcytosis R71.8 Vitamin D deficiency E55.9 Varicose veins of left lower extremity with pain I83.812 Seasonal allergic rhinitis, unspecified trigger J30.2 Allergic rhinitis trigger: unspecified PCOS (polycystic ovarian syndrome) E28.2 Morbid obesity with BMI of 45.0-49.9, adult E66.01; Z68.42
[2023-09-29 10:07] VITALS: BP 140/82
== END 2023-09-29 10:12 | disposition home or self-care (01) ==
PROVIDERS: PCP Internal Medicine; Visit Provider Internal Medicine
DX: E78.2 Mixed hyperlipidemia (principal); E11.9 Type 2 diabetes mellitus without complications; I10 Essential (primary) hypertension; G43.109 Migraine with aura, not intractable, without status migrainosus; E03.9 Hypothyroidism, unspecified; J98.4 Other disorders of lung; R79.89 Other specified abnormal findings of blood chemistry; R71.8 Other abnormality of red blood cells; E55.9 Vitamin D deficiency, unspecified; I83.812 Varicose veins of left lower extremity with pain; E66.01 Morbid (severe) obesity due to excess calories; Z68.42 Body mass index [BMI] 45.0-49.9, adult
CPT/HCPCS: 99214; G2211

== ENCOUNTER 2024-01-27 07:57 | Outpatient (REF) | payer OTHER, SELFPAY ==
[2024-01-27 08:07] LABS: MANUAL DIFF FLAG NO
[2024-01-27 08:27] LABS: Basophils Absolute Auto 0.1 X10*3/uL (0.0-0.2); Basophils Percent Auto 0.8 % (0-2); Eosinophils Absolute Auto 0.8 X10*3/uL (0.0-0.4); Eosinophils Percent Auto 6.8 % (0-4); Hematocrit 38.9 % (37.0-47.0); Hemoglobin 11.8 g/dl (12.0-16.0); Imm Gran Abs Auto 0.03 X10*3/uL (0.00-0.03); Imm Gran Pct Auto 0.3 % (0.0-0.4); Lymphocytes Absolute Auto 2.5 X10*3/uL (1.2-4.9); Lymphocytes Percent Auto 21.8 % (20-40); Mean Corpuscular HGB Conc 30.3 g/dl (31.0-35.0); Mean Corpuscular Hemoglobin 24.5 pg (27.0-33.0); Mean Corpuscular Volume 80.7 fL (80.0-98.0); Mean Platelet Volume 9.4 fL (9.4-12.3); Monocytes Percent Auto 8.6 % (2-11); Neutrophils Percent Auto 61.7 % (45-73); Platelet Count 431 X10*3/uL (160-400); Red Blood Count 4.82 X10*6/uL (4.20-5.50); Red Cell Distribution Width 14.8 % (11.0-16.0); White Blood Count 11.3 X10*3/uL (4.8-10.8)
[2024-01-27 09:03] LABS: Alanine Aminotransferase 48 U/L (0-31); Albumin Level 3.9 g/dL (3.5-5.0); Alkaline Phosphatase 64 U/L (39-117); Anion Gap 15 (12-20); Aspartate Amino Transferase 51 U/L (5-31); Bilirubin Total 0.4 mg/dL (0.0-1.0); Blood Urea Nitrogen 12 mg/dL (9-16); Calcium 10.2 mg/dL (8.4-10.2); Carbon Dioxide 29 mmol/L (22-29); Chloride 101 mmol/L (96-108); Cholesterol 131 mg/dL (<200); Estimated Glomerular Filt Rate > 60; Glucose Fasting 164 mg/dL (60-99); HDL Cholesterol 38 mg/dL (>40); LDL Cholesterol Calculated 66 mg/dL (<100); Sodium 141 mmol/L (135-145); Total Protein 8.6 g/dL (6.5-8.0); Triglycerides 139 mg/dL (<150)
[2024-01-27 09:11] LABS: Appearance Urine Clear; Color Urine Yellow; Glucose Urine UA Negative (Negative); Leukocyte Esterase Urine Trace (Negative); Nitrite Urine Negative (Negative); PH 6.5 (5.0-9.0); UMIC TRIGGER UACC YES; Urine Blood Negative (Negative); Urine Ketones Negative (Negative); Urine Protein Negative (Neg-Trace)
[2024-01-27 09:19] LABS: Free T4 (Free Thyroxine) 1.32 ng/dL (0.71-1.85); Thyroid Stimulating Hormone 12.53 uIU/mL (0.32-4.0)
[2024-01-27 09:22] LABS: Bacteria Urine None Seen (None Seen); Hyaline Casts Urine 0-2 /LPF (0-2); RBC Urine 0-2 /HPF (0-2); WBC Urine 0-5 /HPF (0-5)
[2024-01-27 09:46] LABS: Creatinine Urine 131.13 mg/dL
[2024-01-27 10:15] LABS: Estimated Average Glucose 157 mg/dL; Hemoglobin A1C 163.8331 umol/L; Hemoglobin A1c % 7.1 % (<6.0); Total Hemoglobin (HGBA1C) 3029.8508 umol/L
[2024-01-29 14:53] LABS: Hematocrit 39.6 % (35.0-45.0); MCH 24.6 pg (27.0-33.0); MCV 81.1 fL (80.0-100.0); RBC 4.88 Million/uL (3.80-5.10); RDW 14.5 % (11.0-15.0)
== END 2024-01-27 07:58 | disposition home or self-care (01) ==
LOC: HO.LAB 07:57
PROVIDERS: PCP Internal Medicine; Visit Provider Internal Medicine
DX: E03.9 Hypothyroidism, unspecified (principal); D64.9 Anemia, unspecified; E11.9 Type 2 diabetes mellitus without complications; E78.00 Pure hypercholesterolemia, unspecified; R30.0 Dysuria
CPT/HCPCS: 36415; 80053; 80061; 81001; 81003; 82043; 82570; 83020; 83036; 84439; 84443; 85014; 85018; 85025; 85041

== ENCOUNTER 2024-02-06 12:26 | Outpatient (AMB) | payer OTHER, SELFPAY ==
[2024-02-06 12:46] VITALS: BP 162/90; PULSE 105; O2SAT 99; BMI 46.8
--- NOTE | 2024-02-06 12:46 | MHC.PC.OV ---
Vital Signs 02/06/24 12:46 Height 5 ft 2 in Weight 256 lb 2 oz BMI 46.8 BP 162/90 H Blood Pressure Location Lt brachial Position Sitting Pulse 105 H Pulse Source Pulse Oximeter Pulse Oximetry (%) 99 Oxygen Delivery Method Room Air Intake Visit Reasons: r/s from 01/30 (DM,HTN,Hyperlipid) Piano Case And Bench Assembler Required: No Accompanied by: Self / Same As Patient Allergies atorvastatin Adverse Reaction (Intermediate, Verified 02/06/24 13:20) myalgia Medication List - Last Reconciled 02/06/24 by Patrick Johnson MD albuterol sulfate 90 mcg/actuation 2 puffs inhalation Q6H PRN 30 days aspirin 81 mg PO DAILY 90 days blood sugar diagnostic (FreeStyle Lite Strips) As directed daily BG testing blood-glucose meter (FreeStyle Lite Meter kit) As directed cholecalciferol (vitamin D3) 1,250 mcg PO QWEEK 90 days lancets (FreeStyle Lancets) USE TO TEST ONE TIME PER DAY levothyroxine (Synthroid) 175 mcg PO QAM 90 days linagliptin (Tradjenta) 5 mg PO QAM 30 days lisinopril 20 mg PO DAILY 90 days lorazepam 1 mg PO DAILY PRN metformin 1,000 mg PO BID 90 days miscellaneous medical supply 1 ea miscellaneous .once per day 90 days pioglitazone 15 mg PO DAILY 30 days rosuvastatin 5 mg PO .QOD 60 days sumatriptan succinate take 1 tab at onset of headache; if no relief may repeat 1 tab after at least 2 hrs; max = 4 tabs/24 hr PO 30 days Tobacco use date assessed: 02/06/24 Dental Screening Dental Screen Date: 02/06/24 Did you have a dental visit in the last 12 months?: Yes Did you have a dental problem in the last 6 months where you did not have access to dental care?: No Was dental information given to patient?: Patient has dentist HPI r/s from 01/30 (DM,HTN,Hyperlipid) HPI Details Patient comes in today for her follow up visit States that she feels okay She is now seeing neurology for regular follow up of her headaches and was continued on the same medications she was on before She denies any headaches or dizziness - states that her migraine headaches have been better controlled lately Denies any chest pains, no SOB No nausea/vomiting, no abdominal pain No change in bowel habits noted She had her follow up labs done last week - to discuss her results [facility] Medical History Mixed hyperlipidemia Migraine aura without headache Morbid obesity with BMI of 45.0-49.9, adult Type 2 diabetes mellitus with hyperglycemia Diverticulitis Morbid obesity with BMI of 50.0-59.9, adult PCOS (polycystic ovarian syndrome) Seasonal allergic rhinitis Vitamin D deficiency Restrictive lung disease Acquired hypothyroidism Dyslipidemia Benign essential hypertension Diabetes mellitus Surgical History History of incision and drainage Family History Father Medical history unknown Mother CVD (cardiovascular disease) Cancer Hypertension Social History Housing: House Alcohol intake: never Patient Tobacco Use Status: Former Tobacco user e-Cigarette/Vaping Use: Never Used Second Hand Smoke Exposure: Yes service: No Current occupational status: employed 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 1. Little interest or pleasure in doing things: not at all 2. Feeling down, depressed, or hopeless: not at all 3. Trouble falling or staying asleep, or sleeping too much: not at all 4. Feeling tired or having little energy: not at all 5. Poor appetite or overeating: not at all 6. Feeling bad about yourself - or that you are a failure or have let yourself or your family down: not at all 7. Trouble concentrating on things, such as reading the newspaper or watching television: not at all 8. Moving or speaking so slowly that other people could have noticed. Or the opposite - being so fidgety or restless that you have been moving around a lot more than usual: not at all 9. Thoughts that you would be better off or of hurting yourself in some way: not at all Total score: 0 Depression Screening Interpretation: Negative Depression Screening Done: Yes 28883 - PHQ-9 Billing: Yes Source: Developed by Drs. Pankaj Degroot, Chucky Munoz and colleagues, with an educational tristan from [employer]. Thrive Questionnaire Date Thrive assessed: 02/06/24 I am a: Patient What is your living situation today?: I have a steady place to live Within the past 12 months, did the food you bought not last and you didn't have the money to get more?: Never true Within the past 12 months, did you worry whether your food would run out before you got money to buy more?: Never true Do you have trouble paying for medicines?: No Do you have trouble getting transportation to medical appointments?: No Do you have trouble paying your heating and electricity bill?: No Do you have trouble taking care of your child, family member or friend?: No Do you have trouble with day-to-day activities such as bathing, preparing meals, shopping, managing finances, etc.?: No Are you currently unemployed and looking for a job?: No Are you interested in more education?: No Please select the resources that you would like help with: None Currently or been in a relationship where the following occur: No concerns reported THRIVE Score: 0 AUDIT C Alcohol Use Questionnaire (AUDIT-C) 1. How often do you have a drink containing alcohol?: Never 3. How often do you have six or more drinks on one occasion?: Never Total Score: 0 Score Reviewed/Action Taken: Yes ANGLE-7 AMB Questionnaire ANGLE-7 Date ANGLE - 7 assessed: 02/06/24 Feeling nervous, anxious, or on edge: 0 = Not at all Not being able to stop or control worryin = Not at all Worrying too much about different things: 0 = Not at all Trouble relaxin = Not at all Being so restless that it is hard to sit still: 0 = Not at all Becoming easily annoyed or irritable: 0 = Not at all Feeling afraid as if something awful might happen: 0 = Not at all Total ANGLE-7 score (0-4 normal; 5-9 mild; 10-14 moderate; 15-21 severe): 0 Source: Developed by Bree Conti Kurt Kroenke and colleagues, with an educational tristan from [employer]. Physical exam (Primary Care) Vital Signs: Last Vital Signs Pulse 105 H 02/06/24 12:46 BP 162/90 H 02/06/24 12:46 Pulse Ox 99 02/06/24 12:46 Oxygen Delivery Method Room Air 02/06/24 12:46 BMI result Body Mass Index 46.8 Tobacco/Smoking Status: Tobacco use Status Tobacco use date assessed 02/06/24 02/06/24 12:50 Patient Tobacco Use Status Former Tobacco user 02/06/24 12:50 e-Cigarette/Vaping Use Never Used 02/06/24 12:50 PHQ-9: PHQ-9 Score PHQ-9: Total score 0 02/06/24 14:47 Depression Screening Interpretation: Negative Thrive Assessment: Date of Thrive Assessment Date Thrive assessed 02/06/24 02/06/24 12:50 Currently or been in a relationship where the following occur: No concerns reported Office Procedures Flu Questionnaire Does the patient have a severe egg allergy?: No Immunizations Fluarix Triv [id number] (PF) 45 mcg (15 mcg x 3)/0.5 mL IM syringe Performing Provider: Patrick Johnson MD [facility] Documented (not given) by: TOD De La Cruz on 02/06/24 14:47 Reason Not Given: Patient Refused Results Reviewed Results Reviewed: Laboratory Tests 01/27/24 01/27/24 08:04 08:05 WBC 11.3 H Hgb 11.8 L Hct 38.9 Plt Count 431 H Hgb ELP Comment 2 TNP Hgb ELP Interp SEE NOTE Sodium 141 Potassium 4.0 Creatinine 0.83 Estimated GFR > 60 Fasting Glucose 164 H Hemoglobin A1c % 7.1 H Calcium 10.2 AST 51 H ALT 48 H Triglycerides 139 Cholesterol 131 LDL Cholesterol, Calc 66 HDL Cholesterol 38 L TSH 12.53 H Free T4 1.32 Ur Specific [place] 1.020 Urine Protein Negative Urine Glucose (UA) Negative Urine Blood Negative Urine Nitrite Negative Ur Leukocyte Esterase Trace H Microalb/Creat Ratio 19.0 Coding Assessment & Plan Assessment & Plan Orders: Orders Influenza [id number] Immunization Today Z23 - Encounter for immunization Medications: New amlodipine 2.5 mg PO DAILY 90 tabs 0RF 90 days
== END 2024-02-06 13:32 | disposition home or self-care (01) ==
PROVIDERS: PCP Internal Medicine; Visit Provider Internal Medicine
DX: Z23 Encounter for immunization (principal)

== ENCOUNTER → 2024-02-06 12:26 | Outpatient (BNVA) | payer OTHER, SELFPAY | PROVIDERS: PCP Internal Medicine; Visit Provider Internal Medicine | DX: I10 Essential (primary) hypertension (principal); E11.9 Type 2 diabetes mellitus without complications; E78.5 Hyperlipidemia, unspecified; G43.109 Migraine with aura, not intractable, without status migrainosus; E03.9 Hypothyroidism, unspecified; J98.4 Other disorders of lung; R79.89 Other specified abnormal findings of blood chemistry; R71.8 Other abnormality of red blood cells; E55.9 Vitamin D deficiency, unspecified; I83.812 Varicose veins of left lower extremity with pain; J30.2 Other seasonal allergic rhinitis; E28.2 Polycystic ovarian syndrome; E66.01 Morbid (severe) obesity due to excess calories; Z68.42 Body mass index [BMI] 45.0-49.9, adult; Z79.84 Long term (current) use of oral hypoglycemic drugs; Z79.899 Other long term (current) drug therapy; Z28.21 Immunization not carried out because of patient refusal | CPT/HCPCS: 90471; 96127 ==

== ENCOUNTER 2024-07-19 15:45 | Outpatient (AMB) | payer OTHER, SELFPAY ==
--- NOTE | 2024-07-19 15:52 | MHC.PC.OV ---
Vital Signs 07/19/24 15:54 Height 5 ft 2 in Weight 254 lb 6 oz BMI 46.5 BP 142/82 H Blood Pressure Location Lt brachial Position Sitting Pulse 113 H Pulse Source Pulse Oximeter Temp 97.3 F Temp Source Temporal Artery Scan Pulse Oximetry (%) 96 Oxygen Delivery Method Room Air Intake Visit Reasons: uncontrolled BP/HTN Intake Note: Patient is here to follow up on HTN. Pharmacy Resource Tech Required: No Agricultural Equipment Salesperson: Not Required per policy Accompanied by: Self / Same As Patient Allergies atorvastatin Adverse Reaction (Intermediate, Verified 07/19/24 16:37) myalgia Medication List - Last Reconciled 07/19/24 by Patrick Johnson MD albuterol sulfate 90 mcg/actuation 2 puffs inhalation Q6H PRN 30 days amlodipine 2.5 mg PO DAILY 90 days aspirin 81 mg PO DAILY 90 days blood sugar diagnostic (FreeStyle Lite Strips) As directed daily BG testing blood-glucose meter (FreeStyle Lite Meter kit) As directed cholecalciferol (vitamin D3) 1,250 mcg PO QWEEK 90 days lancets (FreeStyle Lancets) USE TO TEST ONE TIME PER DAY levothyroxine (Synthroid) 175 mcg PO QAM 90 days linagliptin (Tradjenta) 5 mg PO QAM 30 days lisinopril 20 mg PO DAILY 90 days lorazepam 1 mg PO DAILY PRN metformin 1,000 mg PO BID 90 days miscellaneous medical supply 1 ea miscellaneous .once per day 90 days pioglitazone 15 mg PO DAILY 30 days rosuvastatin 5 mg PO .QOD 60 days sumatriptan succinate take 1 tab at onset of headache; if no relief may repeat 1 tab after at least 2 hrs; max = 4 tabs/24 hr PO 30 days Tobacco use date assessed: 07/19/24 Dental Screening Dental Screen Date: 07/19/24 Did you have a dental visit in the last 12 months?: Yes Did you have a dental problem in the last 6 months where you did not have access to dental care?: No Was dental information given to patient?: No HPI uncontrolled BP/HTN HPI Details Patient comes in today for her follow-up visit States that she feels okay States that her blood pressure appears to be better with the addition of Amlodipine a few months ago but it is still running high at times She denies any headaches or dizziness Denies any chest pains, no increased shortness of breath No nausea/vomiting, no abdominal pain No change in bowel habits noted She was started additionally on Amlodipine 2.5 mg daily at her last visit in January 2024 and was instructed to come back in a couple months for follow-up of her blood pressure but she was apparently not able to schedule her follow-up appointment until today [facility] Medical History Mixed hyperlipidemia Migraine aura without headache Morbid obesity with BMI of 45.0-49.9, adult Type 2 diabetes mellitus with hyperglycemia Diverticulitis Morbid obesity with BMI of 50.0-59.9, adult PCOS (polycystic ovarian syndrome) Seasonal allergic rhinitis Vitamin D deficiency Restrictive lung disease Acquired hypothyroidism Dyslipidemia Benign essential hypertension Diabetes mellitus Surgical History History of incision and drainage Family History Father Medical history unknown Mother CVD (cardiovascular disease) Cancer Hypertension Social History Housing: House Alcohol intake: never Patient Tobacco Use Status: Former Tobacco user e-Cigarette/Vaping Use: Never Used Second Hand Smoke Exposure: Yes service: No Current occupational status: employed 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 1. Little interest or pleasure in doing things: not at all 2. Feeling down, depressed, or hopeless: not at all 3. Trouble falling or staying asleep, or sleeping too much: not at all 4. Feeling tired or having little energy: not at all 5. Poor appetite or overeating: not at all 6. Feeling bad about yourself - or that you are a failure or have let yourself or your family down: not at all 7. Trouble concentrating on things, such as reading the newspaper or watching television: not at all 8. Moving or speaking so slowly that other people could have noticed. Or the opposite - being so fidgety or restless that you have been moving around a lot more than usual: not at all 9. Thoughts that you would be better off or of hurting yourself in some way: not at all Total score: 0 Depression Screening Interpretation: Negative Depression Screening Done: Yes 26690 - PHQ-9 Billing: Yes Source: Developed by Drs. Pankaj Degroot, Bree Gee, Chucky Richter and colleagues, with an educational tristan from [employer]. Thrive Questionnaire Date Thrive assessed: 07/19/24 I am a: Patient What is your living situation today?: I have a steady place to live Within the past 12 months, did the food you bought not last and you didn't have the money to get more?: Never true Within the past 12 months, did you worry whether your food would run out before you got money to buy more?: Never true Do you have trouble paying for medicines?: No Do you have trouble getting transportation to medical appointments?: No Do you have trouble paying your heating and electricity bill?: No Do you have trouble taking care of your child, family member or friend?: No Do you have trouble with day-to-day activities such as bathing, preparing meals, shopping, managing finances, etc.?: No Are you currently unemployed and looking for a job?: No Are you interested in more education?: No Please select the resources that you would like help with: None Currently or been in a relationship where the following occur: No concerns reported THRIVE Score: 0 AUDIT C Alcohol Use Questionnaire (AUDIT-C) 1. How often do you have a drink containing alcohol?: Never 3. How often do you have six or more drinks on one occasion?: Never Total Score: 0 Score Reviewed/Action Taken: Yes ANGLE-7 AMB Questionnaire ANGLE-7 Date ANGLE - 7 assessed: 07/19/24 Feeling nervous, anxious, or on edge: 0 = Not at all Not being able to stop or control worryin = Not at all Worrying too much about different things: 0 = Not at all Trouble relaxin = Not at all Being so restless that it is hard to sit still: 0 = Not at all Becoming easily annoyed or irritable: 0 = Not at all Feeling afraid as if something awful might happen: 0 = Not at all Total ANGLE-7 score (0-4 normal; 5-9 mild; 10-14 moderate; 15-21 severe): 0 Source: Developed by Drs. Pankaj Degroot, Bree Gee, Chucky Richter and colleagues, with an educational tristan from [employer]. Review of Systems Const Denies chills, Denies fatigue, Denies fever(s) and Denies headache(s) (better controlled) ENT Denies dysphagia, Denies dizziness, Denies otalgia, Denies headache(s) (better controlled), Denies neck pain, Denies odynophagia and Denies sore throat Card Denies chest pain, Denies palpitations and Denies dyspnea Resp Denies chest congestion, Denies cough and Denies dyspnea GI Denies abdominal pain, Denies constipation, Denies dysphagia, Denies heartburn, Denies diarrhea, Denies nausea, Denies odynophagia and Denies vomiting Denies difficulty voiding, Denies nocturia, Denies dysuria and Denies urinary urgency Musc Denies back pain and Denies neck pain Skin/Breast Denies rash Neuro Denies dizziness and Denies headache(s) (better controlled) Psych Denies anxiety Endo Denies fatigue and Denies palpitations Meño/Lymph Details: (+) varicose veins over the back of the left knee - painful at times Physical exam (Primary Care) Vital Signs: Last Vital Signs Temp 97.3 F 07/19/24 15:54 Pulse 113 H 07/19/24 15:54 BP 142/82 H 07/19/24 15:54 Pulse Ox 96 07/19/24 15:54 Oxygen Delivery Method Room Air 07/19/24 15:54 BMI result Body Mass Index 46.5 Tobacco/Smoking Status: Tobacco use Status Tobacco use date assessed 07/19/24 07/19/24 15:59 Patient Tobacco Use Status Former Tobacco user 07/19/24 15:59 e-Cigarette/Vaping Use Never Used 07/19/24 15:59 PHQ-9: PHQ-9 Score PHQ-9: Total score 0 07/19/24 16:45 Depression Screening Interpretation: Negative Thrive Assessment: Date of Thrive Assessment Date Thrive assessed 07/19/24 07/19/24 15:59 Currently or been in a relationship where the following occur: No concerns reported Const General: no acute distress and alert HENMT Throat: Yes posterior oropharynx normal and Yes tonsils normal Neck Neck: Yes supple and No lymphadenopathy Thyroid: Thyroid normal Resp Auscultation: clear to auscultation bilaterally, no rales and no wheezes Cardio Rate: regular rate Rhythm: regular rhythm Heart sounds: no murmurs GI Palpation (GI): Soft to palpation and nontender Auscultation: normal bowel sounds General: Yes no CVA tenderness Back/Spine/Pelvis Back: no CVA tenderness Thoracic/Lumbar Spine: No lumbar spinal tenderness Skin Rashes: no rashes Extrem Other: (+) prominent varicose veins that are slightly tender on palpation over the lateral side of the left popliteal fossa General: Yes no clubbing, cyanosis or edema Coding Level of Care Code Est Pt Level 4 (55390) Diagnoses Benign essential hypertension I10 Type 2 diabetes mellitus without complication, without long-term current use of insulin E11.9 Diabetes mellitus type: type 2 Diabetes mellitus snf insulin use: without snf use Diabetes mellitus complication status: without complication Dyslipidemia E78.5 Migraine with aura and without status migrainosus, not intractable G43.109 Migraine type: with aura Status migrainosus presence: without status migrainosus Intractability: not intractable Acquired hypothyroidism E03.9 Restrictive lung disease J98.4 Vitamin D deficiency E55.9 Varicose veins of left lower extremity with pain I83.812 Seasonal allergic rhinitis, unspecified trigger J30.2 Allergic rhinitis trigger: unspecified Morbid obesity with BMI of 45.0-49.9, adult E66.01; Z68.42 Additional Codes PHQ-9 - 80758 - PHQ-9 Billing: Yes ([id number]) Assessment & Plan Assessment & Plan (1) Benign essential hypertension: Code(s): I10 - Essential (primary) hypertension Category: Medical Plan: Reinforced low-sodium diet - goal is systolic BP of 120 mm or less Continue Lisinopril 20 mg QD As her systolic BP still appears to be running higher than recommended, will go ahead and increase her Amlodipine now from 2.5 mg to 5 mg QD Patient is reminded to continue monitoring her blood pressure regularly (2) Diabetes mellitus: Code(s): E11.9 - Type 2 diabetes mellitus without complications Category: Medical Qualifiers: Diabetes mellitus type: type 2 Diabetes mellitus 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 insulin use: without 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 use Diabetes mellitus complication status: without complication Qualified Code(s): E11.9 - Type 2 diabetes mellitus without complications Plan: Her HgbA1c was at 7.1% when checked most recently a few months ago - goal is at least <7.0% Reinforced diabetic diet Her ANGLE Ab and C-peptide level both came back normal Continue Metformin 1000 mg BID and Pioglitazone 15 mg QD She will be started additionally today on Semaglutide 0.25 mg SQ once a week, which should help both with her diabetes and with weight loss Discussed that if her diabetes control continues to improve significantly with the addition of Semaglutide, we may be able to take her off Pioglitazone and even cut back on her Metformin dose in the future Follow up with dietitian for nutrition counseling and diabetic teaching as scheduled or as needed (3) Dyslipidemia: Code(s): E78.5 - Hyperlipidemia, unspecified Category: Medical Plan: Reinforced low cholesterol diet Continue Rosuvastatin 5 mg every other day - she has been tolerating Rx at this dosing with no problems so far (she could not tolerate Atorvastatin in the past due to increased myalgias) Will recheck her labs and fasting lipids in 4 months for follow up (4) Migraine: Code(s): G43.909 - Migraine, unspecified, not intractable, without status migrainosus Category: Medical Qualifiers: Migraine type: with aura Status migrainosus presence: without status migrainosus Intractability: not intractable Qualified Code(s): G43.109 - Migraine with aura, not intractable, without status migrainosus Plan: Reinforced avoidance of migraine triggers Head CT done in August 2022 came out negative Continue Sumatriptan 50 mg PRN as instructed Discussed again option of starting her on Rx for headache prophylaxis if her headaches progress or increase in severity or frequency Follow up with neurology as scheduled for continuing management of her migraine headaches (5) Acquired hypothyroidism: Comment: (+) Marsha's thyroiditis Code(s): E03.9 - Hypothyroidism, unspecified Category: Medical Plan: Patient is clinically euthyroid Continue Levothyroxine 175 mcg QD Will recheck her TFTs in 4 months for follow up (6) Restrictive lung disease: Comment: PFT done in August 2014 showed only mild restrictive lung disease with no obstructive component and with no significant improvement after bronchodilator therapy Code(s): J98.4 - Other disorders of lung Category: Medical Plan: Continue Albuterol HFA 2 puffs 4 times a day as needed She was on Flovent HFA in the past but patient stopped using it months ago as she felt that she does not really need it; she has only been using her Albuterol HFA occasionally PRN since (7) Vitamin D deficiency: Code(s): E55.9 - Vitamin D deficiency, unspecified Category: Medical Plan: Continue Vitamin D3 1250 mcg once a week (8) Varicose veins of left lower extremity with pain: Code(s): I83.812 - Varicose veins of left lower extremity with pain Category: Medical Plan: Follow up with vascular surgery as scheduled (9) Seasonal allergic rhinitis: Code(s): J30.2 - Other seasonal allergic rhinitis Category: Medical Qualifiers: Allergic rhinitis trigger: unspecified Qualified Code(s): J30.2 - Other seasonal allergic rhinitis Plan: Continue Montelukast 10 mg QD (10) Morbid obesity with BMI of 45.0-49.9, adult: Code(s): E66.01 - Morbid (severe) obesity due to excess calories; Z68.42 - Body mass index [BMI] 45.0-49.9, adult Category: Medical Plan: Reinforced diet/exercise as tolerated/lose weight She is being started on Semaglutide today for her diabetes but advised that this will also likely help her lose some weight in the process Plan Follow-up in 4 months Orders: Orders Comprehensive [place]. Panel Fast 4 Months E78.00 - Pure hypercholesterolemia, unspecified UA CC w/rflx Micro + Cult 4 Months R30.0 - Dysuria Vitamin B12 and Folate 4 Months E53.8 - Deficiency of other specified B group vitamins Magnesium 4 Months E83.42 - Hypomagnesemia Hemoglobin A1c 4 Months E11.9 - Type 2 diabetes mellitus without complications Thyroid Stimulating Hormone 4 Months E03.9 - Hypothyroidism, unspecified Lipid Panel 4 Months E78.00 - Pure hypercholesterolemia, unspecified Complete Blood Count Auto Diff 4 Months D64.9 - Anemia, unspecified Free T4 (Free Thyroxine) 4 Months E03.9 - Hypothyroidism, unspecified Microalbumin, Random (w Creat) 4 Months E11.9 - Type 2 diabetes mellitus without complications Vitamin D 25-OH Total 4 Months E55.9 - Vitamin D deficiency, unspecified Medications: New semaglutide 0.25 mg (0.368 mL) subcut QWEEK 4 weeks 3 mL 3RF E11.65 - Type 2 diabetes mellitus with hyperglycemia Changed From amlodipine 2.5 mg PO DAILY 90 days 90 tabs 0RF To amlodipine 5 mg PO DAILY 90 days 90 tabs 1RF
[2024-07-19 15:54] VITALS: BP 142/82; PULSE 113; TEMP 36.3; O2SAT 96; BMI 46.5
== END 2024-07-19 16:47 | disposition home or self-care (01) ==
LOC: HO.HMCH 15:46
PROVIDERS: PCP Internal Medicine; Visit Provider Internal Medicine
DX: I10 Essential (primary) hypertension (principal); E11.69 Type 2 diabetes mellitus with other specified complication; E66.01 Morbid (severe) obesity due to excess calories; Z68.42 Body mass index [BMI] 45.0-49.9, adult; E78.5 Hyperlipidemia, unspecified; E03.9 Hypothyroidism, unspecified; G43.109 Migraine with aura, not intractable, without status migrainosus; J98.4 Other disorders of lung; E55.9 Vitamin D deficiency, unspecified; I83.812 Varicose veins of left lower extremity with pain; J30.2 Other seasonal allergic rhinitis

== ENCOUNTER → 2024-07-19 15:45 | Outpatient (BNVA) | payer OTHER, SELFPAY | PROVIDERS: PCP Internal Medicine; Visit Provider Internal Medicine | DX: I10 Essential (primary) hypertension (principal); E11.9 Type 2 diabetes mellitus without complications; E78.5 Hyperlipidemia, unspecified; G43.109 Migraine with aura, not intractable, without status migrainosus; E03.9 Hypothyroidism, unspecified; J98.4 Other disorders of lung; E55.9 Vitamin D deficiency, unspecified; I83.812 Varicose veins of left lower extremity with pain; J30.2 Other seasonal allergic rhinitis; E66.01 Morbid (severe) obesity due to excess calories; Z68.42 Body mass index [BMI] 45.0-49.9, adult; Z79.84 Long term (current) use of oral hypoglycemic drugs; Z79.899 Other long term (current) drug therapy | CPT/HCPCS: 96127 ==

== ENCOUNTER 2024-11-15 08:00 | Outpatient (REF) | payer OTHER, SELFPAY ==
--- OUTSIDE RECORDS SUMMARY | 2024-11-15 08:03 | XMS_ITS | Patient Health Record ---
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
[2024-11-15 08:16] LABS: MANUAL DIFF FLAG NO
[2024-11-15 08:36] LABS: Hematocrit 35.9 % (37.0-47.0); Hemoglobin 11.0 g/dl (12.0-16.0); Imm Gran Abs Auto 0.05 X10*3/uL (0.00-0.03); Imm Gran Pct Auto 0.5 % (0.0-0.4); Lymphocytes Absolute Auto 2.9 X10*3/uL (1.2-4.9); Mean Corpuscular HGB Conc 30.6 g/dl (31.0-35.0); Mean Corpuscular Hemoglobin 24.2 pg (27.0-33.0); Mean Corpuscular Volume 79.1 fL (80.0-98.0); NRBC Abs Auto 0.000 X10*3/uL (0.0-0.012); NRBC Pct Auto 0.0 /100WBC (0.0-0.2); Platelet Count 392 X10*3/uL (160-400); Red Blood Count 4.54 X10*6/uL (4.20-5.50); White Blood Count 10.9 X10*3/uL (4.8-10.8)
[2024-11-15 08:42] LABS: Hemoglobin A1C 252.0954 umol/L; Total Hemoglobin (HGBA1C) 2896.4842 umol/L
[2024-11-15 08:49] LABS: Appearance Urine Clear; Glucose Urine UA Negative (Negative); PH 5.0 (5.0-9.0); Specific Gravity - Urine 1.025 (1.005-1.025)
[2024-11-15 09:16] LABS: Alanine Aminotransferase 60 U/L (0-31); Albumin Level 3.8 g/dL (3.5-5.0); Alkaline Phosphatase 69 U/L (39-117); Anion Gap 11 (12-20); Aspartate Amino Transferase 59 U/L (5-31); Blood Urea Nitrogen 13 mg/dL (9-16); Calcium 9.6 mg/dL (8.4-10.2); Carbon Dioxide 28 mmol/L (22-29); Chloride 104 mmol/L (96-108); Cholesterol 139 mg/dL (<200); Estimated Glomerular Filt Rate > 60; HDL Cholesterol 31 mg/dL (>40); Magnesium 1.5 mg/dL (1.6-2.6); Potassium 4.1 mmol/L (3.3-5.1); Sodium 139 mmol/L (135-145); Total Protein 8.1 g/dL (6.5-8.0); Triglycerides 161 mg/dL (<150)
[2024-11-15 09:32] LABS: Free T4 (Free Thyroxine) 1.37 ng/dL (0.71-1.85); Thyroid Stimulating Hormone 14.07 uIU/mL (0.32-4.0)
[2024-11-15 09:40] LABS: Folate 8.5 ng/mL (> or = 4.0); Vitamin B12 400 pg/mL (200-900)
[2024-11-15 09:53] LABS: Microalbum/Creatinine Ratio Ur 14.8 ug/mg cr (<30)
== END 2024-11-15 08:01 | disposition home or self-care (01) ==
LOC: HO.LAB 08:00
PROVIDERS: PCP Internal Medicine; Visit Provider Internal Medicine
DX: E11.9 Type 2 diabetes mellitus without complications (principal); E53.8 Deficiency of other specified B group vitamins; E83.42 Hypomagnesemia; R30.0 Dysuria; E78.00 Pure hypercholesterolemia, unspecified; D64.9 Anemia, unspecified; E03.9 Hypothyroidism, unspecified
CPT/HCPCS: 36415; 80053; 80061; 81003; 82043; 82306; 82570; 82607; 82746; 83036; 83735; 84439; 84443; 85025

== ENCOUNTER 2024-11-20 16:02 | Outpatient (AMB) | payer OTHER, SELFPAY ==
[2024-11-20 16:04] VITALS: BP 128/84; PULSE 116; O2SAT 93; BMI 45.5
--- NOTE | 2024-11-20 16:04 | MHC.PC.OV ---
Vital Signs 11/20/24 16:04 Height 5 ft 2 in Weight 249 lb BMI 45.5 BP 128/84 Blood Pressure Location Lt brachial Position Sitting Pulse 116 H Pulse Source Pulse Oximeter Pulse Oximetry (%) 93 Oxygen Delivery Method Room Air Intake Visit Reasons: DM, HTN, hypoythyroidism - see comments Clinical Quality Assurance Specialist Required: No Accompanied by: Self / Same As Patient Allergies atorvastatin Adverse Reaction (Intermediate, Verified 11/20/24 16:34) myalgia Medication List - Last Reconciled 11/20/24 by Patrick Johnson MD albuterol sulfate 90 mcg/actuation 2 puffs inhalation Q6H PRN 30 days amlodipine 5 mg PO DAILY 90 days aspirin 81 mg PO DAILY 90 days blood sugar diagnostic (FreeStyle Lite Strips) As directed daily BG testing blood-glucose meter (FreeStyle Lite Meter kit) As directed cholecalciferol (vitamin D3) 1,250 mcg PO QWEEK 90 days lancets (FreeStyle Lancets) USE TO TEST ONE TIME PER DAY levothyroxine (Synthroid) 175 mcg PO QAM 90 days linagliptin (Tradjenta) 5 mg PO QAM 30 days lisinopril 20 mg PO DAILY 90 days lorazepam 1 mg PO DAILY PRN metformin 1,000 mg PO BID 90 days miscellaneous medical supply 1 ea miscellaneous .once per day 90 days pioglitazone 15 mg PO DAILY 30 days rosuvastatin 5 mg PO .QOD 60 days semaglutide 0.25 mg (0.368 mL) subcut QWEEK 4 weeks sumatriptan succinate take 1 tab at onset of headache; if no relief may repeat 1 tab after at least 2 hrs; max = 4 tabs/24 hr PO 30 days Tobacco use date assessed: 11/20/24 Dental Screening Dental Screen Date: 11/20/24 Did you have a dental visit in the last 12 months?: Yes Did you have a dental problem in the last 6 months where you did not have access to dental care?: No Was dental information given to patient?: Patient has dentist HPI DM, HTN, hypoythyroidism - see comments HPI Details Patient comes in today for her follow up visit States that she has been experiencing recurrent lower abdominal pain since last night She's had diverticulitis in the past and she is concerned that she may be coming down again with the same Reports that her stools have been mostly soft lately but it is not loose or watery and she has not noticed any blood in stool lately She denies any fever; denies any nausea or vomiting Denies any headaches or dizziness Denies any chest pains, no shortness of breath noted She had her follow-up labs done a few days ago - to discuss her results [facility] Medical History Mixed hyperlipidemia Migraine aura without headache Morbid obesity with BMI of 45.0-49.9, adult Type 2 diabetes mellitus with hyperglycemia Diverticulitis Morbid obesity with BMI of 50.0-59.9, adult PCOS (polycystic ovarian syndrome) Seasonal allergic rhinitis Vitamin D deficiency Restrictive lung disease Acquired hypothyroidism Dyslipidemia Benign essential hypertension Diabetes mellitus Surgical History History of incision and drainage Family History Father Medical history unknown Mother CVD (cardiovascular disease) Cancer Hypertension Social History Housing: House Alcohol intake: never Patient Tobacco Use Status: Former Tobacco user e-Cigarette/Vaping Use: Never Used Second Hand Smoke Exposure: Yes service: No Current occupational status: employed 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 1. Little interest or pleasure in doing things: not at all 2. Feeling down, depressed, or hopeless: several days 3. Trouble falling or staying asleep, or sleeping too much: not at all 4. Feeling tired or having little energy: more than half the days 5. Poor appetite or overeating: several days 6. Feeling bad about yourself - or that you are a failure or have let yourself or your family down: not at all 7. Trouble concentrating on things, such as reading the newspaper or watching television: not at all 8. Moving or speaking so slowly that other people could have noticed. Or the opposite - being so fidgety or restless that you have been moving around a lot more than usual: not at all 9. Thoughts that you would be better off or of hurting yourself in some way: not at all Total score: 4 Depression Screening Interpretation: Positive Depression Screening Follow-up: Follow-up Visit Requested Depression Screening Done: Yes 60300 - PHQ-9 Billing: Yes Source: Developed by Drs. Pankaj Degroot, Bree Gee, Chucky Richter and colleagues, with an educational tristan from [employer]. Thrive Questionnaire Date Thrive assessed: 11/20/24 I am a: Patient What is your living situation today?: I have a steady place to live Within the past 12 months, did the food you bought not last and you didn't have the money to get more?: I choose not to answer this question Within the past 12 months, did you worry whether your food would run out before you got money to buy more?: Sometimes True Do you have trouble paying for medicines?: Yes Do you have trouble getting transportation to medical appointments?: No Do you have trouble paying your heating and electricity bill?: No Do you have trouble taking care of your child, family member or friend?: No Do you have trouble with day-to-day activities such as bathing, preparing meals, shopping, managing finances, etc.?: No Are you currently unemployed and looking for a job?: No Are you interested in more education?: I choose not to answer this question Please select the resources that you would like help with: Paying for medicine Currently or been in a relationship where the following occur: No concerns reported THRIVE Score: 1 AUDIT C Alcohol Use Questionnaire (AUDIT-C) 1. How often do you have a drink containing alcohol?: Monthly or less 2. How many drinks containing alcohol do you have on a typical day when you are drinking?: 1 or 2 3. How often do you have six or more drinks on one occasion?: Never Total Score: 1 Score Reviewed/Action Taken: Yes ANGLE-7 AMB Questionnaire ANGLE-7 Date ANGLE - 7 assessed: 11/20/24 Feeling nervous, anxious, or on edge: 1 = Several days Not being able to stop or control worryin = Several days Worrying too much about different things: 1 = Several days Trouble relaxin = Not at all Being so restless that it is hard to sit still: 0 = Not at all Becoming easily annoyed or irritable: 1 = Several days Feeling afraid as if something awful might happen: 1 = Several days Total ANGLE-7 score (0-4 normal; 5-9 mild; 10-14 moderate; 15-21 severe): 5 Source: Developed by Drs. Pankaj Degroot, Bree Gee, Chucky Richter and colleagues, with an educational tristan from [employer]. Review of Systems Const Denies chills, Denies fatigue, Denies fever(s) and Denies headache(s) (better controlled) ENT Denies dysphagia, Denies dizziness, Denies otalgia, Denies headache(s) (better controlled), Denies neck pain, Denies odynophagia and Denies sore throat Card Denies chest pain, Denies palpitations and Denies dyspnea Resp Denies chest congestion, Denies cough and Denies dyspnea GI Reports abdominal pain (over the lower abdomen, recurrent since last night), Denies hematochezia, Denies constipation, Denies dysphagia, Denies heartburn, Denies diarrhea (but (+) soft stools), Denies nausea, Denies odynophagia and Denies vomiting Denies difficulty voiding, Denies nocturia, Denies dysuria and Denies urinary urgency Musc Denies back pain and Denies neck pain Skin/Breast Denies rash Neuro Denies dizziness and Denies headache(s) (better controlled) Psych Denies anxiety Endo Denies fatigue and Denies palpitations Meño/Lymph Details: (+) varicose veins over the back of the left knee - painful at times Physical exam (Primary Care) Vital Signs: Last Vital Signs Pulse 116 H 11/20/24 16:04 BP 128/84 11/20/24 16:04 Pulse Ox 93 11/20/24 16:04 Oxygen Delivery Method Room Air 11/20/24 16:04 BMI result Body Mass Index 45.5 Tobacco/Smoking Status: Tobacco use Status Tobacco use date assessed 11/20/24 11/20/24 16:08 Patient Tobacco Use Status Former Tobacco user 11/20/24 16:08 e-Cigarette/Vaping Use Never Used 11/20/24 16:08 PHQ-9: PHQ-9 Score PHQ-9: Total score 4 11/20/24 16:35 Depression Screening Interpretation: Positive Depression Screening Follow-up: Follow-up Visit Requested Thrive Assessment: Date of Thrive Assessment Date Thrive assessed 11/20/24 11/20/24 16:08 Currently or been in a relationship where the following occur: No concerns reported Const General: no acute distress and alert HENMT Throat: Yes posterior oropharynx normal and Yes tonsils normal Neck Neck: Yes supple and No lymphadenopathy Thyroid: Thyroid normal Resp Auscultation: clear to auscultation bilaterally, no rales and no wheezes Cardio Rate: regular rate Rhythm: regular rhythm Heart sounds: no murmurs GI Palpation (GI): Soft to palpation, Tenderness to palpation present (GI) (mostly over the lower abdomen/infraumbilical area), no guarding, not rigid and No Rebound tenderness present Auscultation: normal bowel sounds General: Yes no CVA tenderness Back/Spine/Pelvis Back: no CVA tenderness Thoracic/Lumbar Spine: No lumbar spinal tenderness Skin Rashes: no rashes Extrem Other: (+) prominent varicose veins that are slightly tender on palpation over the lateral side of the left popliteal fossa General: Yes no clubbing, cyanosis or edema Results Reviewed Results Reviewed: Laboratory Tests 11/15/24 11/15/24 08:11 08:15 WBC 10.9 H Hgb 11.0 L Hct 35.9 L Plt Count 392 Sodium 139 Potassium 4.1 Creatinine 0.77 Estimated GFR > 60 Fasting Glucose 233 H Hemoglobin A1c % 10.1 H Magnesium 1.5 L AST 59 H ALT 60 H Triglycerides 161 H Cholesterol 139 LDL Cholesterol, Calc 76 HDL Cholesterol 31 L Vitamin B12 400 25-OH Vitamin D Total 69.2 TSH 14.07 H Free T4 1.37 Ur Specific [place] 1.025 Urine Protein Trace Urine Glucose (UA) Negative Urine Blood Negative Urine Nitrite Negative Ur Leukocyte Esterase Negative Microalb/Creat Ratio 14.8 Coding Level of Care Code Est Pt Level 4 (20348) Complex EM visit Add On G2211 Diagnoses Lower abdominal pain R10.30 Type 2 diabetes mellitus without complication, without long-term current use of insulin E11.9 Diabetes mellitus type: type 2 Diabetes mellitus care home insulin use: without watermelon inspector use Diabetes mellitus complication status: without complication Benign essential hypertension I10 Dyslipidemia E78.5 Acquired hypothyroidism E03.9 Migraine with aura and without status migrainosus, not intractable G43.109 Migraine type: with aura Status migrainosus presence: without status migrainosus Intractability: not intractable Elevated LFTs R79.89 Hypomagnesemia E83.42 Restrictive lung disease J98.4 Vitamin D deficiency E55.9 Varicose veins of left lower extremity with pain I83.812 Seasonal allergic rhinitis, unspecified trigger J30.2 Allergic rhinitis trigger: unspecified Morbid obesity with BMI of 45.0-49.9, adult E66.01; Z68.42 Additional Codes PHQ-9 - 15174 - PHQ-9 Billing: Yes ([id number]) Assessment & Plan Assessment & Plan (1) Lower abdominal pain: Code(s): R10.30 - Lower abdominal pain, unspecified Category: Medical Plan: Patient has had bouts of diverticulitis in the past she presented with similar symptoms from the start Will go ahead and start him empirically on Augmentin 875 mg BID x 7 days She is instructed to give us a call back ADRIENNE if her symptoms do not improve promptly or if they get worse at any time despite empiric antibiotic treatment (2) Diabetes mellitus: Code(s): E11.9 - Type 2 diabetes mellitus without complications Category: Medical Qualifiers: Diabetes mellitus type: type 2 Diabetes mellitus care home insulin use: without watermelon inspector use Diabetes mellitus complication status: without complication Qualified Code(s): E11.9 - Type 2 diabetes mellitus without complications Plan: Her HgbA1c went up to 10.1% on her labs done a few days ago (was at 7.1% when previously checked back in January 2024) - goal is at least <7.0% Reinforced diabetic diet Her ANGLE Ab and C-peptide level both came back normal when checked last year Continue Metformin 1000 mg BID She was also supposed to be on Pioglitazone 15 mg QD but she is currently no on it and does not seem to remember ever taking it in the past Her prescription log indicates that it was prescribed sometime in May 2023 and was never refilled since - patient likely did not understand or remember her instructions during her follow up visit around that time She was also started on Semaglutide 0.25 mg SQ once a week at her last visit to help with both her diabetes and with weight loss BUT she did not start the medication due to concerns regarding side effects Will start her (back) for now on Pioglitazone 15 mg QD and add Tradjenta 5 mg QD as well Follow up with dietitian for nutrition counseling and diabetic teaching as scheduled or as needed Will recheck her FBS and HgbA1c in 3 months for follow up (3) Benign essential hypertension: Code(s): I10 - Essential (primary) hypertension Category: Medical Plan: Reinforced low-sodium diet - goal is systolic BP of 120 mm or less Continue Lisinopril 20 mg QD and Amlodipine 5 mg QD Her blood pressure today appears much better controlled compared to her last visit - her Amlodipine dosage was raised then Patient is reminded to continue monitoring her blood pressure regularly (4) Dyslipidemia: Code(s): E78.5 - Hyperlipidemia, unspecified Category: Medical Plan: Results of her labs done a few days ago reviewed and discussed with patient Reinforced low cholesterol diet Continue Rosuvastatin 5 mg every other day - she has been tolerating Rx at this dosing with no problems so far (she could not tolerate Atorvastatin in the past due to increased myalgias) Will recheck her labs and fasting lipids in 3 months for follow up (5) Acquired hypothyroidism: Comment: (+) Marsha's thyroiditis Code(s): E03.9 - Hypothyroidism, unspecified Category: Medical Plan: Her serum TSH level remains significantly elevated but her free T4 is normal - 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 Patient is clinically euthyroid Continue Levothyroxine 175 mcg QD Will recheck her TFTs in 3 months for follow up Will refer her to endocrinology for further recommendations (6) Migraine: Code(s): G43.909 - Migraine, unspecified, not intractable, without status migrainosus Category: Medical Qualifiers: Migraine type: with aura Status migrainosus presence: without status migrainosus Intractability: not intractable Qualified Code(s): G43.109 - Migraine with aura, not intractable, without status migrainosus Plan: Reinforced avoidance of migraine triggers Head CT done in August 2022 came out negative Continue Sumatriptan 50 mg PRN as instructed Discussed again option of starting her on Rx for headache prophylaxis if her headaches progress or increase in severity or frequency Follow up with neurology as scheduled for continuing management of her migraine headaches (7) Elevated LFTs: Code(s): R79.89 - Other specified abnormal findings of blood chemistry Category: Medical Plan: Her LFTs are again elevated on her recent labs She is advised that these are likely related to her weight (hepatosteatosis) and should gradually improve with weight loss Will continue to monitor her LFTs regularly (8) Hypomagnesemia: Code(s): E83.42 - Hypomagnesemia Category: Medical Plan: Patient is advised that his serum magnesium level was slightly low on her recent labs We will start her on supplemetation with Magnesium Oxide 400 mg BID (9) Restrictive lung disease: Comment: PFT done in August 2014 showed only mild restrictive lung disease with no obstructive component and with no significant improvement after bronchodilator therapy Code(s): J98.4 - Other disorders of lung Category: Medical Plan: Continue Albuterol HFA 2 puffs 4 times a day as needed She was on Flovent HFA in the past but patient stopped using it months ago as she felt that she does not really need it; she has only been using her Albuterol HFA occasionally PRN since (10) Vitamin D deficiency: Code(s): E55.9 - Vitamin D deficiency, unspecified Category: Medical Plan: Continue Vitamin D3 1250 mcg once a week (11) Varicose veins of left lower extremity with pain: Code(s): I83.812 - Varicose veins of left lower extremity with pain Category: Medical Plan: Follow up with vascular surgery as scheduled (12) Seasonal allergic rhinitis: Code(s): J30.2 - Other seasonal allergic rhinitis Category: Medical Qualifiers: Allergic rhinitis trigger: unspecified Qualified Code(s): J30.2 - Other seasonal allergic rhinitis Plan: Continue Montelukast 10 mg QD (13) Morbid obesity with BMI of 45.0-49.9, adult: Code(s): E66.01 - Morbid (severe) obesity due to excess calories; Z68.42 - Body mass index [BMI] 45.0-49.9, adult Category: Medical Plan: Reinforced diet/exercise as tolerated/lose weight She was started on Semaglutide at her last visit for her diabetes and was advised that this should also help her lose some weight but she decided not to take the Rx due to concerns about potential side effects Plan Follow up in 3 mons Orders: Orders Comprehensive [place]. Panel Fast 3 Months E78.00 - Pure hypercholesterolemia, unspecified Microalbumin, Random (w Creat) 3 Months E11.9 - Type 2 diabetes mellitus without complications Lipid Panel 3 Months E78.00 - Pure hypercholesterolemia, unspecified Free T4 (Free Thyroxine) 3 Months E03.9 - Hypothyroidism, unspecified UA CC w/rflx Micro + Cult 3 Months R30.0 - Dysuria Magnesium 3 Months E83.42 - Hypomagnesemia Vitamin B12 and Folate 3 Months E53.8 - Deficiency of other specified B group vitamins Complete Blood Count Auto Diff 3 Months D64.9 - Anemia, unspecified Hemoglobin A1c 3 Months E11.9 - Type 2 diabetes mellitus without complications Thyroid Stimulating Hormone 3 Months E03.9 - Hypothyroidism, unspecified Thyroid Peroxidase Antibodies 3 Months R79.89 - Other specified abnormal findings of blood chemistry Vitamin D 25-OH Total 3 Months E55.9 - Vitamin D deficiency, unspecified Referrals Endocrinology Referral E06.3 - Autoimmune thyroiditis Medications: New magnesium oxide 400 mg PO BID 60 tabs 3RF 30 days amoxicillin-pot clavulanate 875-125 mg 1 tab PO BID 14 tabs 0RF 7 days Refilled linagliptin (Tradjenta) 5 mg PO QAM 30 tabs 3RF 30 days pioglitazone 15 mg PO DAILY 30 tabs 3RF 30 days
--- OUTSIDE RECORDS SUMMARY | 2024-11-20 16:30 | XMS_ITS | Patient Health Record ---
Author Organization [facility] Address [address] [place] [id number] Care Team Providers Care Duty Manager Name Role Phone Pankaj Dove Unavailable [phone] Reason For Referral No Information Plan Of Treatment No Information
== END 2024-11-20 16:54 | disposition home or self-care (01) ==
LOC: HO.HMCH 16:02
PROVIDERS: PCP Internal Medicine; Visit Provider Internal Medicine
DX: R10.30 Lower abdominal pain, unspecified (principal); E11.9 Type 2 diabetes mellitus without complications; I10 Essential (primary) hypertension; E78.5 Hyperlipidemia, unspecified; E03.9 Hypothyroidism, unspecified; G43.109 Migraine with aura, not intractable, without status migrainosus; R79.89 Other specified abnormal findings of blood chemistry; E83.42 Hypomagnesemia; J98.4 Other disorders of lung; E55.9 Vitamin D deficiency, unspecified; E66.01 Morbid (severe) obesity due to excess calories; Z68.42 Body mass index [BMI] 45.0-49.9, adult; I83.812 Varicose veins of left lower extremity with pain; J30.2 Other seasonal allergic rhinitis

== ENCOUNTER → 2024-11-20 16:02 | Outpatient (BNVA) | payer OTHER, SELFPAY | PROVIDERS: PCP Internal Medicine; Visit Provider Internal Medicine | DX: E11.9 Type 2 diabetes mellitus without complications (principal); I10 Essential (primary) hypertension; E03.9 Hypothyroidism, unspecified; R10.30 Lower abdominal pain, unspecified; E78.5 Hyperlipidemia, unspecified; R79.89 Other specified abnormal findings of blood chemistry; E83.42 Hypomagnesemia; J98.4 Other disorders of lung; E55.9 Vitamin D deficiency, unspecified; I83.12 Varicose veins of left lower extremity with inflammation; J30.2 Other seasonal allergic rhinitis; E66.01 Morbid (severe) obesity due to excess calories; E06.3 Autoimmune thyroiditis; Z68.42 Body mass index [BMI] 45.0-49.9, adult | CPT/HCPCS: 96127 ==

== ENCOUNTER 2025-01-14 07:28 | Outpatient (AMB) | payer OTHER, SELFPAY ==
--- NOTE | 2025-01-14 07:29 | A.OFFVIS_ITS ---
Vital Signs 01/14/25 07:30 Height 5 ft 2 in Weight 251 lb 8.759 oz BMI 46.0 BP 168/80 H Blood Pressure Location Lt brachial Position Sitting Intake Visit Reasons: Autoimmune thyroiditis Intake Note: New patient present today for Autoimmune thyroiditis. Crossing Tender Required: No Accompanied by: Self / Same As Patient Allergies atorvastatin Adverse Reaction (Intermediate, Verified 01/14/25 07:35) myalgia Medication List - Last Reconciled 01/14/25 by Becky Layne MD albuterol sulfate 90 mcg/actuation 2 puffs inhalation Q6H PRN 30 days amlodipine 5 mg PO DAILY 90 days amoxicillin-pot clavulanate 875-125 mg 1 tab PO BID 7 days aspirin 81 mg PO DAILY 90 days blood sugar diagnostic (FreeStyle Lite Strips) As directed daily BG testing blood-glucose meter (FreeStyle Lite Meter kit) As directed cholecalciferol (vitamin D3) 1,250 mcg PO QWEEK 90 days lancets (FreeStyle Lancets) USE TO TEST ONE TIME PER DAY levothyroxine (Synthroid) 175 mcg PO QAM 90 days linagliptin (Tradjenta) 5 mg PO QAM 30 days lisinopril 20 mg PO DAILY 90 days lorazepam 1 mg PO DAILY PRN magnesium oxide 400 mg PO BID 30 days metformin 1,000 mg PO BID 90 days miscellaneous medical supply 1 ea miscellaneous .once per day 90 days rosuvastatin 5 mg PO .QOD 60 days semaglutide 0.25 mg (0.368 mL) subcut QWEEK 4 weeks sumatriptan succinate take 1 tab at onset of headache; if no relief may repeat 1 tab after at least 2 hrs; max = 4 tabs/24 hr PO 30 days HPI Comments Details: 59-year-old female coming in today for initial evaluation of hypothyroidism. Diagnosed with hypothyroidism: diagnosed mid 30s s/p total thyroidectomy for goiter in 40s . per patient benign pathology. Currently on levothyroxine 175 mcg daily, takes it 6 30 AM, waits 40 mins before BF, with the appropriate administration, adherence:per patient excellent Thinks last dose chnage was in 2023, when she was on OCPs? Most recent labs 11/15/2024: TSH 14.07, free T4 1.37 Patient currently denies diarrhea or constipation, palpitation, anxiety, weight changes, mood changes, changes in appearance of eyes or vision changes, tremors, increased diaphoresis . ? Reports tiredness Postmenopausal Some heat intolerance Hair loss Dry skin Patient denies any difficulty swallowing, pain on swallowing or voice changes or difficulty breathing. Patient denies any history of childhood neck radiation. Denies having ever used lithium, amiodarone or biotin supplements. Patient denies any family history of thyroid cancer. Mother had thyroid disease. Physical exam General: sitting comfortably in no acute distress HEENT: normocephalic/atraumatic, moist oral mucosa Neck: supple, Cardiac: normal heart sounds Pulm: normal breath sounds B/L, no added breath sounds Abd: not distended, no tenderness Extremities: no edema, no signs of myxedema Laboratory Tests 09/19/23 01/27/24 11/15/24 07:17 08:04 08:15 TSH 13.57 H 12.53 H 14.07 H Free T4 1.43 1.32 1.37 PFSH Medical History Mixed hyperlipidemia Migraine aura without headache Morbid obesity with BMI of 45.0-49.9, adult Type 2 diabetes mellitus with hyperglycemia Diverticulitis Morbid obesity with BMI of 50.0-59.9, adult PCOS (polycystic ovarian syndrome) Seasonal allergic rhinitis Vitamin D deficiency Restrictive lung disease Acquired hypothyroidism Dyslipidemia Benign essential hypertension Diabetes mellitus Surgical History History of incision and drainage Family History Father Medical history unknown Mother CVD (cardiovascular disease) Cancer Hypertension Social History Housing: House Alcohol intake: never Patient Tobacco Use Status: Former Tobacco user e-Cigarette/Vaping Use: Never Used Second Hand Smoke Exposure: Yes service: No Current occupational status: employed 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 She is currently on levothyroxine 175 mcg daily per patient she has adherent and has good administration. Last set of labs from October 2024 showed TSH was elevated at 14, with normal free T4. At this time it has been 2 months since the last set of labs so we will repeat another 1 now and see what dose adjustment she needs. Her weight based dosing is close to 180 mcg daily. Plan: -continue levothyroxine 175 mcg daily -ordered TSH, free T4, TPO antibodies , we will reach out with the results -follow up in 6 months Plan See above Orders: Orders Thyroid Peroxidase Antibodies Today E03.9 - Hypothyroidism, unspecified Thyroid Stimulating Hormone Today E03.9 - Hypothyroidism, unspecified Free T4 (Free Thyroxine) Today E03.9 - Hypothyroidism, unspecified Coding Level of Care Code New Pt Level 4 (20091) Diagnoses Acquired hypothyroidism E03.9
[2025-01-14 07:30] VITALS: BP 168/80; BMI 46.0
--- OUTSIDE RECORDS SUMMARY | 2025-01-14 07:31 | XMS_ITS | Clinical Summary ---
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
--- OUTSIDE RECORDS SUMMARY | 2025-01-14 07:31 | XMS_ITS | Patient Health Record ---
Author Organization [facility] Address [address] [place] [id number] Care Team Providers Care Green End Man Name Role Phone Pankaj Dove Unavailable [phone] Reason For Referral No Information Plan Of Treatment No Information
== END 2025-01-14 07:58 | disposition home or self-care (01) ==
LOC: HO.ENCR 07:29
PROVIDERS: PCP Internal Medicine; Visit Provider Student in an Organized Health Care Education/Training Program
DX: E03.9 Hypothyroidism, unspecified (principal)
CPT/HCPCS: 99204

== ENCOUNTER 2025-01-14 08:01 | Outpatient (REF) | payer OTHER, SELFPAY ==
[2025-01-14 11:48] LABS: Free T4 (Free Thyroxine) 1.26 ng/dL (0.71-1.85); Thyroid Stimulating Hormone 11.09 uIU/mL (0.32-4.0)
== END 2025-01-14 08:02 | disposition home or self-care (01) ==
LOC: HO.10HDL 08:01
PROVIDERS: Visit Provider Student in an Organized Health Care Education/Training Program
DX: E03.9 Hypothyroidism, unspecified (principal)
CPT/HCPCS: 36415; 84439; 84443; 86376